=== PATIENT | male | born 1955 | race Caucasian/White ===

== ENCOUNTER 2020-10-13 14:48 | Emergency (ER) | payer OTHER, SELFPAY ==
[2020-10-13 14:59] VITALS: BP 142/87; PULSE 70; RESP 18; TEMP 36.6; O2SAT 93; BMI 25.8
[2020-10-13 16:52] VITALS: BP 166/94; PULSE 70; RESP 12; O2SAT 94
--- NOTE | 2020-10-13 17:11 | W.ED.MALEGU ---
HPI - Male Genitourinary General: Chief complaint: Urogenital-Male Stated complaint: LOWER ABD PAIN Time Seen by Provider: 10/13/20 17:03 History of Present Illness: HPI Narrative: 64-year-old male presents with irritation to the tip of his penis. Patient is uncircumcised male. Has diabetes that he like [id number] and feels he has a yeast infection. Patient has tried some unknown jiaj-rvm-[id number] medications with no improvement. He has no dysuria. He has no fever chills nausea vomiting or systemic complaints. Patient states he was supposed to have appointment with the urologist today but for some reason that urologist was not in our [place] he is not sure why he was not able to have his appointment. Review of Systems Const: Denies: fever(s) Card: Denies: chest pain or palpitations Resp: Denies: dyspnea or productive cough GI: Denies: abdominal pain or nausea : Reports: other (Please see HPI) Musc: Denies: other Physical Exam Const: COMMON NORMALS: no acute distress and patient oriented x3 Resp: COMMON NORMALS: normal respiratory effort Cardio: COMMON NORMALS: regular rate and regular rhythm RATE: regular rate RHYTHM: regular rhythm GI: COMMON NORMALS: Soft to palpation and non-tender PALPATION: Yes Soft to palpation : PENIS: uncircumcised and other (Blantits likely due to yeast infection) Neuro: COMMON NORMALS: patient oriented x3 Psych: COMMON NORMALS: mental status grossly normal Course Vital Signs: Vital signs: Vital Signs Temperature 97.9 F 10/13/20 14:59 Pulse Rate 70 10/13/20 16:52 Respiratory Rate 12 10/13/20 16:52 Blood Pressure 166/94 10/13/20 16:52 Pulse Oximetry 94 10/13/20 16:52 Discharge Plan Discharge Patient Disposition: Home Clinical Impression: Balanitis Condition: Stable Discharge Orders: Discharge ED (Routine); Ordered 10/13/20 Ordered By: Carroll Zapata Discharge Diet: Usual diet Discharge Activity: Resume usual activity Patient Instructions: Josetis (ED), Opioid Safety, Yeast Infection Activity Restrictions/Additional Instructions: Follow-up with your primary care provider or urologist for recheck of today symptoms You may use niun-cbi-gpybvrc woman's vaginal medication for yeast infection. 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
[2020-10-13 17:39] VITALS: BP 140/87; PULSE 66; RESP 16; O2SAT 94
== END 2020-10-13 17:40 | disposition home or self-care (01) ==
PROVIDERS: Emergency Provider Student in an Organized Health Care Education/Training Program
DX: N48.1 Balanitis (principal)
CPT/HCPCS: 99281

== ENCOUNTER 2021-03-08 14:57 | Emergency (ER) | payer OTHER, MEDICARE, SELFPAY ==
[2021-03-08 15:26] VITALS: BP 126/77; PULSE 88; RESP 18; TEMP 36.5; O2SAT 94; BMI 21.9
--- NOTE | 2021-03-08 16:06 | XRR_ITS ---
PROCEDURE INFORMATION: Exam: XR Chest Exam date and time: 03/08/2021 4:06 PM Age: 65 years old Clinical indication: Cough and fever and other: Weakness; Additional info: Dyspnea/cough TECHNIQUE: Imaging protocol: XR of the chest. Views: 1 view. COMPARISON: No relevant prior studies available. FINDINGS: Lungs: There are calcified granulomas in the right upper lobe. Visualized portions of the lungs are clear. Pleural spaces: Unremarkable. No pleural effusion. No pneumothorax. Heart/Mediastinum: Heart is within normal limits of size. Bones/joints: Unremarkable. XR/XR chest 1V portable [id number] IMPRESSION: No acute infiltrates.
--- NOTE | 2021-03-08 16:07 | ECG_ITS ---
[facility] Test Date: 2021-03-08 Pat Name: Marlon Whitehead Department: Room: Gender: Male [employer]: : [id number] Requested By: Dylan Bagley Order Number: [id number] Zoya MD: Alexandria Hanson M.D. Measurements Intervals [place] Rate: 79 P: 62 DC: 147 QRS: 69 QRSD: 90 T: 50 QT: 350 QTc: 402 Interpretive Statements SINUS RHYTHM WITH OCCASIONAL VENTRICULAR PREMATURE COMPLEXES No previous ECG available for comparison Electronically Signed On 03-08-2021 23:21:51 CDT by Alexandria Hanson M.D. [id number]
--- NOTE | 2021-03-08 16:15 | W.ED.FEVER ---
Documented by User: Dylan Langston DO 03/09/21 07:47 HPI - Fever General: Chief Complaint: Fever Stated Complaint: Fever, Chills, & Body Aches Time Seen by Provider: 03/08/21 15:22 History of Present Illness: HPI Narrative: 65-year-old male presents emergency room complaining of generalized weakness malaise not feeling well.'s been going on for the last several days. States he initially had a bit of a fever at home up to 103 but that seems to have resolved he does not have one here. He was concerned that he had been working at a new job and exposed to some animal waste that may have caused this. He is diabetic he is not been managing his diabetes really at all at this point. He has prescriptions for Metformin. He was also of the impression that the gemfibrozil manage his diabetes. He denies any abdominal pain no polyuria polydipsia or polyphagia. MD elicited complaint: fever and malaise Pertinent past history: diabetes Onset (ago): day(s) Measured temperature: 103 F Exacerbating factors: nothing Relieving factors: nothing Associated symptoms: Reports flank pain, cough, myalgias and short of breath; Deny abdominal pain, chills, chest pain, confusion, diarrhea, dysuria, extremity pain, headache(s), nasal congestion, nausea, night sweats, rash, rhinorrhea, sinus pain, stiffness, sore throat, vomiting or weight loss Treatments prior to arrival fever: none Review of Systems Const: Denies: chills or night sweats ENMT: Denies: nasal congestion or sinus pain Card: Denies: chest pain Resp: Denies: dyspnea, productive cough or non-productive cough GI: Denies: abdominal pain, nausea, vomiting or diarrhea : Reports: flank pain; Denies: dysuria Musc: Denies: extremity pain Skin/Breast: Denies: rash or pruritus Neuro: Denies: headache(s) or confusion Physical Exam Const: COMMON NORMALS: no acute distress GENERAL APPEARANCE: cooperative and comfortable ORIENTATION/CONSCIOUSNESS: Yes awake, Yes oriented to person, Yes oriented to place and Yes oriented to time HENMT: COMMON NORMALS: normocephalic, atraumatic and hearing grossly normal bilaterally HEAD & SCALP: normocephalic and atraumatic Neck/C-Spine: COMMON NORMALS: no JVD Resp: COMMON NORMALS: normal respiratory effort, No retractions, No use of accessory muscles and clear to auscultation bilaterally AUSCULTATION: clear to auscultation bilaterally Cardio: COMMON NORMALS: no JVD, regular rate, regular rhythm and No murmurs present (Cardio) RATE: regular rate RHYTHM: regular rhythm GI: COMMON NORMALS: Soft to palpation and No hepatosplenomegaly present AUSCULTATION: Yes normoactive bowel sounds PALPATION: Yes Soft to palpation, No Tenderness to palpation present (GI), No Guarding due to palpation present (GI) and Yes No hepatosplenomegaly present Extremity: COMMON NORMALS: normal to inspection, capillary refill normal, no clubbing, cyanosis or edema, no calf tenderness and no pedal edema Neuro: SENSORIUM/ORIENTATION: Yes oriented to person, Yes oriented to place and Yes oriented to time Skin: COMMON NORMALS: no rashes or lesions noted GENERAL SKIN EXAM: no rashes or lesions noted Course Vital Signs: Vital signs: Vital Signs Temperature 97.7 F 03/08/21 15:26 Pulse Rate 84 03/08/21 20:03 Respiratory Rate 16 03/08/21 20:03 Blood Pressure 128/80 03/08/21 20:03 Pulse Oximetry 96 03/08/21 20:03 MDM - Fever MDM Narrative: Medical decision making narrative: Blood sugar significantly elevated. Patient given IV fluids and insulin. He is hyponatremic but this corrects to near normal when accounting for his blood sugars. We will give him IV fluids, insulin and recheck an Accu-Chek. Care turned over to Dr. Sumner at change of shift see his notes for final diagnosis and disposition. Lab Data: Labs: Lab Results 03/08/21 03/08/21 03/08/21 Range/Units 16:22 16:22 16:30 WBC (4.0-10.0) 10^3/ uL RBC (4.1-5.3) 10^6/u L Hgb (11.7-16.6) g/dL Hct (42.0-52.0) % MCV (80-94) fl MCH (28.0-34.0) pg MCHC (30.0-36.0) g/dL RDW (12.1-15.1) % Plt Count (130-400) 10^3/c mm MPV (7.4-10.4) fL Lymph % (Auto) Towner % (Auto) Lymph # (Auto) Towner # (Auto) Total Counted (0-100) Atypical Lymphs % (0-5) % Absolute Neutrophi ls (1.4-6.5) 10^3/c mm Segmented Neutroph ils % Abs Segm Neuts (Ma n) (1.6-7.1) 10/cmm Band Neutrophils % Abs Band Neuts (Ma n) (0.0-1.2) 10^3/c mm Absolute Lymphocyt es (1.2-3.4) 10^3/c mm Lymphocytes (Manua l) % Monocytes (Manual) % Absolute Monocytes (0.1-0.6) 10^3/c mm Eosinophils (Manua l) Basophils (Manual) Platelet Estimate (Normal) Specimen Type Arterial Sample Site Brachial, right ABG pH 7.45 (7.35-7.45) ABG pCO2 33.4 L (35-45) mmHg ABG pO2 69.1 L (80.0-100.0) mmH g ABG HCO3 23.4 (22-26) mmol/L ABG O2 Saturation 94.2 ABG Base Excess 0.1 (-2.0-2.0) mmol/ L Andrea Test Pos A-a O2 Gradient 4.9 L (5-10) mmHg Hematocrit 42.9 (42-52) % Hgb O2 Saturation 93.2 L (95-100) % Carboxyhemoglobin 0.2 L (0.4-20.1) %THgb Methemoglobin 0.9 (0.4-1.5) % Total Hemoglobin 14.0 (14-18) g/dL Sodium 128.0 L (131-143) mmol/L Potassium 4.5 (3.5-5.0) mmol/L Glucose 586.0 H (70-115) mg/dL Ionized Calcium 1.2 (1.1-1.4) mmol/L O2 Delivery Device Room air Hearing Stenographer ID jmn Chloride (98-107) mmol/L Carbon Dioxide (22-29) mmol/L Anion Gap (5-19) BUN (8-23) mg/dL Creatinine (0.7-1.2) mg/dL GFR Calculation (90-130) mL/min POC Glucose (70-110) mg/dL Calculated Osmolal ity (285-295) mOsm/k g Lactic Acid (0.5-2.2) mmol/L Calcium (8.5-10.5) mg/dL Total Bilirubin (0.15-1.2) mg/dL AST (0-40) U/L ALT (0-41) U/L Alkaline Phosphata se (40-130) IU/L Creatine Kinase (39-308) U/L Total Protein (6.6-8.7) g/dL Albumin (3.5-5.2) g/dL Globulin (1.3-4.6) g/dL Urine Color (Yellow) Urine Appearance (CLEAR) Urine pH (5-7) Ur Specific Gravit y (1.005-1.030) Urine Protein (Negative) Urine Glucose (UA) (Normal) Urine Ketones (Negative) Urine Blood (Negative) Urine Nitrate (Negative) Urine Bilirubin (Negative) Urine Urobilinogen (Negative) mg/dL Ur Leukocyte Renata ase (Negative) Urine RBC (0-2) /hpf Urine WBC (0-5) /hpf Ur Squamous Epith Cells (0-5) /hpf Amorphous Sediment Urine Bacteria (NONE) /hpf Nasal/Oral COVID-1 9 PCR Not detected SARS-CoV-2 Ag (Rap id) Negative (Negative) 03/08/21 03/08/21 03/08/21 Range/Units 16:33 16:33 16:33 WBC 8.4 (4.0-10.0) 10^3/ uL RBC 4.38 (4.1-5.3) 10^6/u L Hgb 13.7 (11.7-16.6) g/dL Hct 40.8 L (42.0-52.0) % MCV 93.2 (80-94) fl MCH 31.3 (28.0-34.0) pg MCHC 33.6 (30.0-36.0) g/dL RDW 13.3 (12.1-15.1) % Plt Count 85 L (130-400) 10^3/c mm MPV 11.7 H (7.4-10.4) fL Lymph % (Auto) Not Reportable Towner % (Auto) Not Reportable Lymph # (Auto) Not Reportable Towner # (Auto) Not Reportable Total Counted 100 (0-100) Atypical Lymphs % 7.0 H (0-5) % Absolute Neutrophi ls 5.3 (1.4-6.5) 10^3/c mm Segmented Neutroph ils 41 % Abs Segm Neuts (Ma n) 3.4 (1.6-7.1) 10/cmm Band Neutrophils 22.0 % Abs Band Neuts (Ma n) 1.8 H (0.0-1.2) 10^3/c mm Absolute Lymphocyt es 2.6 (1.2-3.4) 10^3/c mm Lymphocytes (Manua l) 24 % Monocytes (Manual) 7.0 % Absolute Monocytes 0.6 (0.1-0.6) 10^3/c mm Eosinophils (Manua l) Not Reportable Basophils (Manual) Not Reportable Platelet Estimate Decreased (Normal) Specimen Type Sample Site ABG pH (7.35-7.45) ABG pCO2 (35-45) mmHg ABG pO2 (80.0-100.0) mmH g ABG HCO3 (22-26) mmol/L ABG O2 Saturation ABG Base Excess (-2.0-2.0) mmol/ L Andrea Test A-a O2 Gradient (5-10) mmHg Hematocrit (42-52) % Hgb O2 Saturation (95-100) % Carboxyhemoglobin (0.4-20.1) %THgb Methemoglobin (0.4-1.5) % Total Hemoglobin (14-18) g/dL Sodium 124 L (131-143) mmol/L Potassium 5.6 H (3.5-5.0) mmol/L Glucose 542 H* (70-115) mg/dL Ionized Calcium (1.1-1.4) mmol/L O2 Delivery Device Hearing Stenographer ID Chloride 88 L (98-107) mmol/L Carbon Dioxide 25 (22-29) mmol/L Anion Gap 16.6 (5-19) BUN 25 H (8-23) mg/dL Creatinine 0.7 (0.7-1.2) mg/dL GFR Calculation 112.5 (90-130) mL/min POC Glucose (70-110) mg/dL Calculated Osmolal ity 287 (285-295) mOsm/k g Lactic Acid 2.1 (0.5-2.2) mmol/L Calcium 8.9 (8.5-10.5) mg/dL Total Bilirubin 0.7 (0.15-1.2) mg/dL AST 28 (0-40) U/L ALT 28 (0-41) U/L Alkaline Phosphata se 125 (40-130) IU/L Creatine Kinase 13 L (39-308) U/L Total Protein 6.4 L (6.6-8.7) g/dL Albumin 3.4 L (3.5-5.2) g/dL Globulin 3.0 (1.3-4.6) g/dL Urine Color (Yellow) Urine Appearance (CLEAR) Urine pH (5-7) Ur Specific Gravit y (1.005-1.030) Urine Protein (Negative) Urine Glucose (UA) (Normal) Urine Ketones (Negative) Urine Blood (Negative) Urine Nitrate (Negative) Urine Bilirubin (Negative) Urine Urobilinogen (Negative) mg/dL Ur Leukocyte Renata ase (Negative) Urine RBC (0-2) /hpf Urine WBC (0-5) /hpf Ur Squamous Epith Cells (0-5) /hpf Amorphous Sediment Urine Bacteria (NONE) /hpf Nasal/Oral COVID-1 9 PCR SARS-CoV-2 Ag (Rap id) (Negative) 03/08/21 03/08/21 03/08/21 Range/Units 16:55 18:05 19:29 WBC (4.0-10.0) 10^3/ uL RBC (4.1-5.3) 10^6/u L Hgb (11.7-16.6) g/dL Hct (42.0-52.0) % MCV (80-94) fl MCH (28.0-34.0) pg MCHC (30.0-36.0) g/dL RDW (12.1-15.1) % Plt Count (130-400) 10^3/c mm MPV (7.4-10.4) fL Lymph % (Auto) Towner % (Auto) Lymph # (Auto) Towner # (Auto) Total Counted (0-100) Atypical Lymphs % (0-5) % Absolute Neutrophi ls (1.4-6.5) 10^3/c mm Segmented Neutroph ils % Abs Segm Neuts (Ma n) (1.6-7.1) 10/cmm Band Neutrophils % Abs Band Neuts (Ma n) (0.0-1.2) 10^3/c mm Absolute Lymphocyt es (1.2-3.4) 10^3/c mm Lymphocytes (Manua l) % Monocytes (Manual) % Absolute Monocytes (0.1-0.6) 10^3/c mm Eosinophils (Manua l) Basophils (Manual) Platelet Estimate (Normal) Specimen Type Sample Site ABG pH (7.35-7.45) ABG pCO2 (35-45) mmHg ABG pO2 (80.0-100.0) mmH g ABG HCO3 (22-26) mmol/L ABG O2 Saturation ABG Base Excess (-2.0-2.0) mmol/ L Andrea Test A-a O2 Gradient (5-10) mmHg Hematocrit (42-52) % Hgb O2 Saturation (95-100) % Carboxyhemoglobin (0.4-20.1) %THgb Methemoglobin (0.4-1.5) % Total Hemoglobin (14-18) g/dL Sodium (131-143) mmol/L Potassium (3.5-5.0) mmol/L Glucose (70-115) mg/dL Ionized Calcium (1.1-1.4) mmol/L O2 Delivery Device Hearing Stenographer ID Chloride (98-107) mmol/L Carbon Dioxide (22-29) mmol/L Anion Gap (5-19) BUN (8-23) mg/dL Creatinine (0.7-1.2) mg/dL GFR Calculation (90-130) mL/min POC Glucose 485 H 328 H (70-110) mg/dL Calculated Osmolal ity (285-295) mOsm/k g Lactic Acid (0.5-2.2) mmol/L Calcium (8.5-10.5) mg/dL Total Bilirubin (0.15-1.2) mg/dL AST (0-40) U/L ALT (0-41) U/L Alkaline Phosphata se (40-130) IU/L Creatine Kinase (39-308) U/L Total Protein (6.6-8.7) g/dL Albumin (3.5-5.2) g/dL Globulin (1.3-4.6) g/dL Urine Color Straw (Yellow) Urine Appearance Clear (CLEAR) Urine pH 5 (5-7) Ur Specific Gravit y 1.005 (1.005-1.030) Urine Protein Neg (Negative) Urine Glucose (UA) 4+ H (Normal) Urine Ketones 1+ H (Negative) Urine Blood 2+ H (Negative) Urine Nitrate Negative (Negative) Urine Bilirubin Neg (Negative) Urine Urobilinogen Norm (Negative) mg/dL Ur Leukocyte Renata ase Negative (Negative) Urine RBC 0-4 H (0-2) /hpf Urine WBC 5-10 H (0-5) /hpf Ur Squamous Epith Cells 5-10 H (0-5) /hpf Amorphous Sediment Not Reportable Urine Bacteria 4+ H (NONE) /hpf Nasal/Oral COVID-1 9 PCR SARS-CoV-2 Ag (Rap id) (Negative) Discharge Plan Discharge Patient Disposition: Home Clinical Impression: Fever, Malaise, Hyperglycemia, Type 2 diabetes mellitus Condition: Stable Prescriptions: New Lantus U-100 Insulin 100 unit/mL solution 6 unit SUBCUT .qhs Qty: 10 RF: 3 No Action garlic 100 mg Tablet 100 mg PO DAILY RF: 0 Cayenne Plus Garlic 200-300 mg Capsule 1 cap PO DAILY RF: 0 Vitamin C 250 mg Tablet 250 mg PO DAILY RF: 0 gemfibrozil 600 mg Tablet 600 mg PO DAILY RF: 0 ginkgo biloba 60 mg Tablet 60 mg PO BID RF: 0 ginseng 250 mg Tablet 250 mg PO DAILY RF: 0 Panax Ginseng 150 mg Capsule 150 mg PO DAILY RF: 0 metformin 1 tab PO DAILY RF: 0 Discharge Orders: Discharge ED (Routine); Ordered 03/08/21 Ordered By: Clive Moss Referrals: Evelio Pisano DO [Primary Care Provider] - Discharge Diet: Diabetic Discharge Activity: Increase activity as tolerated Patient Instructions: Insulin Glargine (Injection), Fever in Adults (ED), How to Check Your Blood Sugar (ED), Fatigue (ED), Diabetic Hyperglycemia (ED) Activity Restrictions/Additional Instructions: Thank you for visiting the emergency department. You were seen and evaluated for fever and malaise. The exact cause of the symptoms is somewhat unclear. You were noted to have high blood sugar. This improved with insulin and IV fluids. You will be given a prescription for a nightly insulin dose, this requires close monitoring and follow-up with your primary care provider. Please record blood glucose throughout the day as well as prior to injection and within a few hours after injection of this medication. Please return to the emergency department for worsening of your symptoms, low blood sugar, increased thirst hunger and/or urine output, or anything else that you are concerned about and feel needs emergency department evaluation. Sign Out Sign Out Data: Patient Sign Out occurred on 03/08/21 at 18:08. Patient's care was discussed, and care was transferred from to Clive Moss MD. Coding Level of Care Code ED Management Development Specialist for Chg Fwd Exam Comprehensive Documented by User: Clive Moss MD 03/10/21 07:40 HPI - Fever General: Chief Complaint: Fever Stated Complaint: Fever, Chills, & Body Aches Time Seen by Provider: 03/08/21 15:22 Course Vital Signs: Vital signs: Vital Signs Temperature 97.7 F 03/08/21 15:26 Pulse Rate 84 03/08/21 20:03 Respiratory Rate 16 03/08/21 20:03 Blood Pressure 128/80 03/08/21 20:03 Pulse Oximetry 96 03/08/21 20:03 MDM - Fever MDM Narrative: Medical decision making narrative: Patient care handoff received pending completion of lab work and reevaluation of blood glucose after IV fluid hydration and insulin, blood glucose improved, reassess patient who felt improved and felt comfortable with plan to start home insulin (Lantus) at night and follow-up with a primary care provider. Return precautions discussed, all questions answered. Patient in satisfactory condition. Clive Moss MD Emergency Medicine Lab Data: Labs: Lab Results 03/08/21 03/08/21 03/08/21 Range/Units 16:22 16:22 16:30 WBC (4.0-10.0) 10^3/ uL RBC (4.1-5.3) 10^6/u L Hgb (11.7-16.6) g/dL Hct (42.0-52.0) % MCV (80-94) fl MCH (28.0-34.0) pg MCHC (30.0-36.0) g/dL RDW (12.1-15.1) % Plt Count (130-400) 10^3/c mm MPV (7.4-10.4) fL Lymph % (Auto) Towner % (Auto) Lymph # (Auto) Towner # (Auto) Total Counted (0-100) Atypical Lymphs % (0-5) % Absolute Neutrophi ls (1.4-6.5) 10^3/c mm Segmented Neutroph ils % Abs Segm Neuts (Ma n) (1.6-7.1) 10/cmm Band Neutrophils % Abs Band Neuts (Ma n) (0.0-1.2) 10^3/c mm Absolute Lymphocyt es (1.2-3.4) 10^3/c mm Lymphocytes (Manua l) % Monocytes (Manual) % Absolute Monocytes (0.1-0.6) 10^3/c mm Eosinophils (Manua l) Basophils (Manual) Platelet Estimate (Normal) Specimen Type Arterial Sample Site Brachial, right ABG pH 7.45 (7.35-7.45) ABG pCO2 33.4 L (35-45) mmHg ABG pO2 69.1 L (80.0-100.0) mmH g ABG HCO3 23.4 (22-26) mmol/L ABG O2 Saturation 94.2 ABG Base Excess 0.1 (-2.0-2.0) mmol/ L Andrea Test Pos A-a O2 Gradient 4.9 L (5-10) mmHg Hematocrit 42.9 (42-52) % Hgb O2 Saturation 93.2 L (95-100) % Carboxyhemoglobin 0.2 L (0.4-20.1) %THgb Methemoglobin 0.9 (0.4-1.5) % Total Hemoglobin 14.0 (14-18) g/dL Sodium 128.0 L (131-143) mmol/L Potassium 4.5 (3.5-5.0) mmol/L Glucose 586.0 H (70-115) mg/dL Ionized Calcium 1.2 (1.1-1.4) mmol/L O2 Delivery Device Room air Hearing Stenographer ID jmn Chloride (98-107) mmol/L Carbon Dioxide (22-29) mmol/L Anion Gap (5-19) BUN (8-23) mg/dL Creatinine (0.7-1.2) mg/dL GFR Calculation (90-130) mL/min POC Glucose (70-110) mg/dL Calculated Osmolal ity (285-295) mOsm/k g Lactic Acid (0.5-2.2) mmol/L Calcium (8.5-10.5) mg/dL Total Bilirubin (0.15-1.2) mg/dL AST (0-40) U/L ALT (0-41) U/L Alkaline Phosphata se (40-130) IU/L Creatine Kinase (39-308) U/L Total Protein (6.6-8.7) g/dL Albumin (3.5-5.2) g/dL Globulin (1.3-4.6) g/dL Urine Color (Yellow) Urine Appearance (CLEAR) Urine pH (5-7) Ur Specific Gravit y (1.005-1.030) Urine Protein (Negative) Urine Glucose (UA) (Normal) Urine Ketones (Negative) Urine Blood (Negative) Urine Nitrate (Negative) Urine Bilirubin (Negative) Urine Urobilinogen (Negative) mg/dL Ur Leukocyte Renata ase (Negative) Urine RBC (0-2) /hpf Urine WBC (0-5) /hpf Ur Squamous Epith Cells (0-5) /hpf Amorphous Sediment Urine Bacteria (NONE) /hpf Nasal/Oral COVID-1 9 PCR Not detected SARS-CoV-2 Ag (Rap id) Negative (Negative) 03/08/21 03/08/21 03/08/21 Range/Units 16:33 16:33 16:33 WBC 8.4 (4.0-10.0) 10^3/ uL RBC 4.38 (4.1-5.3) 10^6/u L Hgb 13.7 (11.7-16.6) g/dL Hct 40.8 L (42.0-52.0) % MCV 93.2 (80-94) fl MCH 31.3 (28.0-34.0) pg MCHC 33.6 (30.0-36.0) g/dL RDW 13.3 (12.1-15.1) % Plt Count 85 L (130-400) 10^3/c mm MPV 11.7 H (7.4-10.4) fL Lymph % (Auto) Not Reportable Towner % (Auto) Not Reportable Lymph # (Auto) Not Reportable Towner # (Auto) Not Reportable Total Counted 100 (0-100) Atypical Lymphs % 7.0 H (0-5) % Absolute Neutrophi ls 5.3 (1.4-6.5) 10^3/c mm Segmented Neutroph ils 41 % Abs Segm Neuts (Ma n) 3.4 (1.6-7.1) 10/cmm Band Neutrophils 22.0 % Abs Band Neuts (Ma n) 1.8 H (0.0-1.2) 10^3/c mm Absolute Lymphocyt es 2.6 (1.2-3.4) 10^3/c mm Lymphocytes (Manua l) 24 % Monocytes (Manual) 7.0 % Absolute Monocytes 0.6 (0.1-0.6) 10^3/c mm Eosinophils (Manua l) Not Reportable Basophils (Manual) Not Reportable Platelet Estimate Decreased (Normal) Specimen Type Sample Site ABG pH (7.35-7.45) ABG pCO2 (35-45) mmHg ABG pO2 (80.0-100.0) mmH g ABG HCO3 (22-26) mmol/L ABG O2 Saturation ABG Base Excess (-2.0-2.0) mmol/ L Andrea Test A-a O2 Gradient (5-10) mmHg Hematocrit (42-52) % Hgb O2 Saturation (95-100) % Carboxyhemoglobin (0.4-20.1) %THgb Methemoglobin (0.4-1.5) % Total Hemoglobin (14-18) g/dL Sodium 124 L (131-143) mmol/L Potassium 5.6 H (3.5-5.0) mmol/L Glucose 542 H* (70-115) mg/dL Ionized Calcium (1.1-1.4) mmol/L O2 Delivery Device Hearing Stenographer ID Chloride 88 L (98-107) mmol/L Carbon Dioxide 25 (22-29) mmol/L Anion Gap 16.6 (5-19) BUN 25 H (8-23) mg/dL Creatinine 0.7 (0.7-1.2) mg/dL GFR Calculation 112.5 (90-130) mL/min POC Glucose (70-110) mg/dL Calculated Osmolal ity 287 (285-295) mOsm/k g Lactic Acid 2.1 (0.5-2.2) mmol/L Calcium 8.9 (8.5-10.5) mg/dL Total Bilirubin 0.7 (0.15-1.2) mg/dL AST 28 (0-40) U/L ALT 28 (0-41) U/L Alkaline Phosphata se 125 (40-130) IU/L Creatine Kinase 13 L (39-308) U/L Total Protein 6.4 L (6.6-8.7) g/dL Albumin 3.4 L (3.5-5.2) g/dL Globulin 3.0 (1.3-4.6) g/dL Urine Color (Yellow) Urine Appearance (CLEAR) Urine pH (5-7) Ur Specific Gravit y (1.005-1.030) Urine Protein (Negative) Urine Glucose (UA) (Normal) Urine Ketones (Negative) Urine Blood (Negative) Urine Nitrate (Negative) Urine Bilirubin (Negative) Urine Urobilinogen (Negative) mg/dL Ur Leukocyte Renata ase (Negative) Urine RBC (0-2) /hpf Urine WBC (0-5) /hpf Ur Squamous Epith Cells (0-5) /hpf Amorphous Sediment Urine Bacteria (NONE) /hpf Nasal/Oral COVID-1 9 PCR SARS-CoV-2 Ag (Rap id) (Negative) 03/08/21 03/08/21 03/08/21 Range/Units 16:55 18:05 19:29 WBC (4.0-10.0) 10^3/ uL RBC (4.1-5.3) 10^6/u L Hgb (11.7-16.6) g/dL Hct (42.0-52.0) % MCV (80-94) fl MCH (28.0-34.0) pg MCHC (30.0-36.0) g/dL RDW (12.1-15.1) % Plt Count (130-400) 10^3/c mm MPV (7.4-10.4) fL Lymph % (Auto) Towner % (Auto) Lymph # (Auto) Towner # (Auto) Total Counted (0-100) Atypical Lymphs % (0-5) % Absolute Neutrophi ls (1.4-6.5) 10^3/c mm Segmented Neutroph ils % Abs Segm Neuts (Ma n) (1.6-7.1) 10/cmm Band Neutrophils % Abs Band Neuts (Ma n) (0.0-1.2) 10^3/c mm Absolute Lymphocyt es (1.2-3.4) 10^3/c mm Lymphocytes (Manua l) % Monocytes (Manual) % Absolute Monocytes (0.1-0.6) 10^3/c mm Eosinophils (Manua l) Basophils (Manual) Platelet Estimate (Normal) Specimen Type Sample Site ABG pH (7.35-7.45) ABG pCO2 (35-45) mmHg ABG pO2 (80.0-100.0) mmH g ABG HCO3 (22-26) mmol/L ABG O2 Saturation ABG Base Excess (-2.0-2.0) mmol/ L Andrea Test A-a O2 Gradient (5-10) mmHg Hematocrit (42-52) % Hgb O2 Saturation (95-100) % Carboxyhemoglobin (0.4-20.1) %THgb Methemoglobin (0.4-1.5) % Total Hemoglobin (14-18) g/dL Sodium (131-143) mmol/L Potassium (3.5-5.0) mmol/L Glucose (70-115) mg/dL Ionized Calcium (1.1-1.4) mmol/L O2 Delivery Device Hearing Stenographer ID Chloride (98-107) mmol/L Carbon Dioxide (22-29) mmol/L Anion Gap (5-19) BUN (8-23) mg/dL Creatinine (0.7-1.2) mg/dL GFR Calculation (90-130) mL/min POC Glucose 485 H 328 H (70-110) mg/dL Calculated Osmolal ity (285-295) mOsm/k g Lactic Acid (0.5-2.2) mmol/L Calcium (8.5-10.5) mg/dL Total Bilirubin (0.15-1.2) mg/dL AST (0-40) U/L ALT (0-41) U/L Alkaline Phosphata se (40-130) IU/L Creatine Kinase (39-308) U/L Total Protein (6.6-8.7) g/dL Albumin (3.5-5.2) g/dL Globulin (1.3-4.6) g/dL Urine Color Straw (Yellow) Urine Appearance Clear (CLEAR) Urine pH 5 (5-7) Ur Specific Gravit y 1.005 (1.005-1.030) Urine Protein Neg (Negative) Urine Glucose (UA) 4+ H (Normal) Urine Ketones 1+ H (Negative) Urine Blood 2+ H (Negative) Urine Nitrate Negative (Negative) Urine Bilirubin Neg (Negative) Urine Urobilinogen Norm (Negative) mg/dL Ur Leukocyte Ernata ase Negative (Negative) Urine RBC 0-4 H (0-2) /hpf Urine WBC 5-10 H (0-5) /hpf Ur Squamous Epith Cells 5-10 H (0-5) /hpf Amorphous Sediment Not Reportable Urine Bacteria 4+ H (NONE) /hpf Nasal/Oral COVID-1 9 PCR SARS-CoV-2 Ag (Rap id) (Negative) Discharge Plan Discharge Patient Disposition: Home Clinical Impression: Fever, Malaise, Hyperglycemia, Type 2 diabetes mellitus Condition: Stable Prescriptions: New Lantus U-100 Insulin 100 unit/mL solution 6 unit SUBCUT .qhs Qty: 10 RF: 3 No Action garlic 100 mg Tablet 100 mg PO DAILY RF: 0 Cayenne Plus Garlic 200-300 mg Capsule 1 cap PO DAILY RF: 0 Vitamin C 250 mg Tablet 250 mg PO DAILY RF: 0 gemfibrozil 600 mg Tablet 600 mg PO DAILY RF: 0 ginkgo biloba 60 mg Tablet 60 mg PO BID RF: 0 ginseng 250 mg Tablet 250 mg PO DAILY RF: 0 Panax Ginseng 150 mg Capsule 150 mg PO DAILY RF: 0 metformin 1 tab PO DAILY RF: 0 Discharge Orders: Discharge ED (Routine); Ordered 03/08/21 Ordered By: Clive Moss Referrals: Evelio Pisano DO [Primary Care Provider] - Discharge Diet: Diabetic Discharge Activity: Increase activity as tolerated Patient Instructions: Insulin Glargine (Injection), Fever in Adults (ED), How to Check Your Blood Sugar (ED), Fatigue (ED), Diabetic Hyperglycemia (ED) Activity Restrictions/Additional Instructions: Thank you for visiting the emergency department. You were seen and evaluated for fever and malaise. The exact cause of the symptoms is somewhat unclear. You were noted to have high blood sugar. This improved with insulin and IV fluids. You will be given a prescription for a nightly insulin dose, this requires close monitoring and follow-up with your primary care provider. Please record blood glucose throughout the day as well as prior to injection and within a few hours after injection of this medication. Please return to the emergency department for worsening of your symptoms, low blood sugar, increased thirst hunger and/or urine output, or anything else that you are concerned about and feel needs emergency department evaluation. Sign Out Sign Out Data: Patient Sign Out occurred on 03/08/21 at 18:08. Patient's care was discussed, and care was transferred from to Clive Moss MD. Coding Level of Care Code ED Management Development Specialist for [employer] [facility] Exam Comprehensive
[2021-03-08 16:31] VITALS: BP 131/78; PULSE 83; RESP 17; O2SAT 97
--- NOTE | 2021-03-08 16:36 | PC.NURSE ---
PATIENT CONNECTED TO NET TECHNICAL ARCHITECT.
[2021-03-08 16:42] LABS: ABG PCO2 33.4 mmHg (35-45); ABG PH Result 7.45 (7.35-7.45); Alveolar-Arterial Oxygen Gradi 4.9 mmHg (5-10); Arterial Blood Gas Hematocrit 42.9 % (42-52); Base Excess ABG 0.1 mmol/L (-2.0-2.0); Blood Gas Allen Test Pos; Blood Gas Sample Site Brachial, right; Blood Gas Sample Type Arterial; Carboxyhemoglobin 0.2 %THgb (0.4-20.1); HCO3 ABG 23.4 mmol/L (22-26); HGB O2 Sat 93.2 % (95-100); Ionized Calcium Level - ABG 1.2 mmol/L (1.1-1.4); Methemoglobin 0.9 % (0.4-1.5); Oxygen Device ROOM AIR; Oxygen Saturation ABG 94.2; PO2 ABG 69.1 mmHg (80.0-100.0); Potassium Level - ABG 4.5 mmol/L (3.5-5.0)
[2021-03-08 16:44] LABS: Hematocrit 40.8 % (42.0-52.0); Hemoglobin 13.7 g/dL (11.7-16.6); Mean Corpuscular HGB Conc 33.6 g/dL (30.0-36.0); Mean Corpuscular Hemoglobin 31.3 pg (28.0-34.0); Mean Corpuscular Volume 93.2 fl (80-94); Mean Platelet Volume 11.7 fL (7.4-10.4); Platelet Count 85 10^3/cmm (130-400); Red Blood Count 4.38 10^6/uL (4.1-5.3); Red Cell Distribution Width 13.3 % (12.1-15.1); White Blood Count 8.4 10^3/uL (4.0-10.0)
[2021-03-08 16:54] LABS: SARS Covid-2 Antigen Negative (Negative)
[2021-03-08 17:07] LABS: Alanine Aminotransferase 28 U/L (0-41); Albumin Level 3.4 g/dL (3.5-5.2); Alkaline Phosphatase 125 IU/L (40-130); Anion Gap 16.6 (5-19); Aspartate Amino Transferase 28 U/L (0-40); Blood Urea Nitrogen 25 mg/dL (8-23); Calcium 8.9 mg/dL (8.5-10.5); Carbon Dioxide 25 mmol/L (22-29); Chloride 88 mmol/L (98-107); Creatine Phosphokinase 13 U/L (39-308); Glomerular Filtration Rate 112.5 mL/min (90-130); Osmolality Calculated 287 mOsm/kg (285-295); Potassium 5.6 mmol/L (3.5-5.1); Sodium 124 mmol/L (136-145); Total Bilirubin 0.7 mg/dL (0.15-1.2); Total Protein 6.4 g/dL (6.6-8.7)
[2021-03-08 17:08] LABS: Glucose 542 mg/dL (65-115)
[2021-03-08 17:22] LABS: Add Urine Microscopic? YES; Bilirubin Urine Neg (Negative); Blood Urine 2+ (Negative); Glucose Urine UA 4+ (Normal); Ketones Urine 1+ (Negative); Leukocyte Esterase Urine Negative (Negative); Nitrate Urine Negative (Negative); Protein Urine Neg (Negative); Specific Gravity, Urine 1.005 (1.005-1.030); Urine Appearance Clear (CLEAR); Urine Color Straw (Yellow); Urobilinogen Urine Norm (Negative); pH Urine 5 (5-7)
[2021-03-08 17:24] LABS: Absolute Segmented Neutrophil 3.4 10/cmm (1.6-7.1); Band Neutrophils Absolute 1.8 10^3/cmm (0.0-1.2); Segmented Neutrophils 41 %; Total Cells Counted 100 (0-100)
[2021-03-08 17:25] LABS: Absolute Neutrophil 5.3 10^3/cmm (1.4-6.5); Lymphocytes 24 %; Lymphocytes Absolute 2.6 10^3/cmm (1.2-3.4); Monocytes Absolute 0.6 10^3/cmm (0.1-0.6); Platelet Estimate Decreased (Normal)
[2021-03-08 17:30] LABS: Lactic Sepsis W/Reflex 2.1 mmol/L (0.5-2.2)
[2021-03-08 17:30] LABS: Add Urine Culture? Yes; Bacteria Urine 4+ /hpf; RBC Urine 0-4 /hpf (0-2)
[2021-03-08] MEDS: sodium chloride 0.9% 1,000 ML 999 ML IV (17:31)
[2021-03-08] MEDS: insulin regular-human 100 units/1 mL 10 UNIT IVP (17:31)
[2021-03-08 17:35] VITALS: BP 132/80; PULSE 90; RESP 18; O2SAT 96
[2021-03-08 18:08] VITALS: BP 122/81; PULSE 88; RESP 27; O2SAT 95
[2021-03-08 18:09] LABS: Glucose Point of Care 485 mg/dL (70-110)
--- NOTE | 2021-03-08 18:09 | PC.NURSE ---
PATIENT ACCUCHECK 485.
[2021-03-08 18:27] LABS: Reflex Lactate Order REFLEX LACTIC ORDERD
[2021-03-08 19:33] LABS: Glucose Point of Care 328 mg/dL (70-110)
[2021-03-08 20:03] VITALS: BP 128/80; PULSE 84; RESP 16; O2SAT 96
[2021-03-09 14:17] LABS: Coronavirus Test Green County Not Detected
--- NOTE | 2021-03-10 15:18 | PC.NURSE ---
left message for pt to call back and receive covid results
== END 2021-03-08 20:05 | disposition home or self-care (01) ==
PROVIDERS: Family Medicine; Emergency Provider Emergency Medicine; PCP Emergency Medicine Emergency Medical Services
DX: R50.9 Fever, unspecified (principal); R53.81 Other malaise; E11.65 Type 2 diabetes mellitus with hyperglycemia; Z79.84 Long term (current) use of oral hypoglycemic drugs; Z20.822 Contact with and (suspected) exposure to COVID-19
CPT/HCPCS: 36416; 36600; 71045; 80051; 80053; 81001; 82330; 82550; 82805; 82962; 83605; 85007; 85025; 87077; 87086; 87186; 87426; 87635; 93005; 96361; 96374; 99284; J1815; J7030

== ENCOUNTER 2021-12-22 10:50 | Observation (INO) | payer OTHER, SELFPAY ==
[2021-12-22] VITALS (9 sets, daily range): BP systolic 103–146; BP diastolic 63–90; PULSE 72–86; RESP 16–18; TEMP 36.7–37.2; O2SAT 92–97; BMI 29.0
--- NOTE | 2021-12-22 11:17 | CT_ITS ---
WS: [id number] CT ABDOMEN AND PELVIS NONCONTRAST HISTORY: progressive lower abd pain TECHNIQUE: Imaging performed through the abdomen and pelvis. Coronal and sagittal reformats are submi tted. All CT scans at [facility] use at least one of these dose optimization techniques: auto mated exposure control; mA and/or kV adjustment per patient size (includes targeted exams where dose is matched to clinical indication); or iterative reconstruction. DLP: 1750.4 mGy.cm COMPARISON: None. Lower thorax: Benign granuloma RIGHT lower lobe. Heart size is normal. Liver: Mild hepatomegaly with diffuse moderate hepatic steatosis. No bile duct dilatation. Gallbladder: Mildly contracted. No adjacent inflammation. Pancreas: Normal size and attenuation. Normal pancreatic duct. No pancreatitis or mass. Spleen: Granulomatous. Normal size. Adrenal glands: Normal. No mass. Right kidney: Normal size kidney with no obstruction. Exophytic 10 mm nodule upper pole too small to characterize. Left kidney: Normal size kidney with no obstruction. Exophytic 17 mm nodule lower pole cannot be mamadou acterized further without IV contrast. Aorta: Mild atherosclerosis. No free fluid, intraperitoneal air or significant lymphadenopathy. GI tract: Marked distention of the stomach. Rectangular structures within the stomach may be medicina l tablets or recently ingested meal. No small bowel obstruction. No history of an appendectomy. There are surgical clips or calcifications in the expected location of the appendix. The appendix is not d efinitely identified as a separate structure. Numerous diverticula throughout the colon, beginning distal to the splenic flexure. Tortuous sigmoid colon. There is a long segment of colon measuring about 10 cm of acute inflammation. Marked wall thic kening with numerous diverticula and narrowing of the lumen. There is a small interloop collection wh ich is probably an abscess measuring 2.2 x 1.6 cm extending to the RIGHT of the acute diverticulosis. Abscess is encased on the RIGHT by a small bowel loop. Abdominal wall: Small umbilical hernia contains fat only. Pelvis: No free fluid in the pelvis. Well-distended urinary bladder. Osseous structures: No destructive bone lesions. CT/CT abdomen pelvis wo con [id number] IMPRESSION: 1. Acute sigmoid diverticulitis extending over 10 cm with marked wall thickeni ng, narrowing of the lumen and diverticular disease. Favor this is all acute di verticulitis but follow-up after resolution to be sure there is no underlying n eoplasm is recommended. 2. There is a small interloop abscess measuring 2.2 x 1.6 cm extending to the RIGHT of the sigmoid with an overlying small bowel loop. 3. Numerous diverticula in the remaining descending and sigmoid colon. 4. The appendix is not identified. Patient did not provide a history of append icitis.
[2021-12-22 11:31] LABS: Basophils # 0.1 10^3/uL (0.0-0.1); Basophils % 0.4 %; Eosinophils # 0.2 10^3/uL (0.0-0.8); Eosinophils % 1.7 %; Hematocrit 44.4 % (42.0-52.0); Hemoglobin 15.2 g/dL (11.7-16.6); Lymphocytes # 3.1 10^3/uL (0.8-4.8); Mean Corpuscular HGB Conc 34.2 g/dL (30.0-36.0); Mean Corpuscular Hemoglobin 30.9 pg (28.0-34.0); Mean Corpuscular Volume 90.2 fl (80-94); Mean Platelet Volume 10.9 fL (7.4-10.4); Monocytes # 0.9 10^3/uL (0.2-0.9); Monocytes % 6.8 %; Neutrophils % 66.9 %; Nucleated Red Blood Cells % 0 %; Platelet Count 247 10^3/cmm (130-400); Red Blood Count 4.92 10^6/uL (4.1-5.3); Red Cell Distribution Width 12.6 % (12.1-15.1); White Blood Count 12.7 10^3/uL (4.0-10.0)
--- NOTE | 2021-12-22 11:52 | ED_ITS ---
HPI - Abdominal Pain General: Chief Complaint: Abdominal Pain Stated Complaint: lower abdomen pain Time Seen by Provider: 12/22/21 11:05 Source: patient and family Mode of arrival: ambulatory Limitations: no limitations History of Present Illness: This patient presents by private vehicle from his home due to progressive abdominal pain. He states he noted some intermittent lower abdominal discomfort approximately a week ago. He states it is predominantly in his lower abdomen and seem to come and go after with short intervals of cramping or gas pains. He denied any other associated symptoms at that time of onset. He states that it is progressed to becoming more frequent and more sustained and then in the last 24 hours its been continuous. He states he did not sleep well last night decided to come to the emergency department. He again describes as in the lower abdomen across between his hips in the suprapubic area it is pressure and gas-like. He states that riding over in the car was uncomfortable and he would press on his abdomen to kind of keep it from becoming uncomfortable. He states he been having normal bowel movements without any blood or other abnormal appearance. He states he been urinating normally. He has had a prior colon resection for a rectal foreign body and perforation with a temporary colostomy but no other abdominal surgeries. He denies any fevers or chills exposure to infectious disease etc. He has had a prior kidney stone. No history of sexually transmitted diseases. No recent travel, antibiotic use etc. Otherwise has had some mild nasal congestion recently. No fevers chills etc. MD elicited complaint: abdominal pain Location: Suprapubic and Pelvis Severity: moderate Quality: cramping Exacerbating factors: movement Associated Symptoms: Denies change in stool character, chills, dysuria, fever(s), nausea, syncope and vomiting Review of Systems Const: Denies: fever(s), chills or body aches Eyes: Denies: change in vision ENMT: Reports: nasal congestion; Denies: odynophagia, ear or mastoid pain or sinus pain Card: Denies: chest pain, palpitations, swelling of feet/ankles or syncope Resp: Denies: dyspnea, productive cough, non-productive cough or wheezing GI: Denies: nausea, vomiting or change in stool character : Denies: flank pain, difficulty urinating, dysuria, urinary frequency or urinary urgency Musc: Denies: neck pain, back pain, extremity pain or extremity swelling Skin/Breast: Denies: rash or pruritus Neuro: Denies: headache(s), numbness in extremities or weakness in extremities Psych: Denies: anxiety or depression Endo: Denies: polyuria or polydipsia Physical Exam Narrative: EXAM NARRATIVE: He is alert jovial and interactive in no acute distress. Const: COMMON NORMALS: patient oriented x3 and no limitations GENERAL APPEARANCE: cooperative and comfortable NUTRITIONAL APPEARANCE: overweight HENMT: COMMON NORMALS: normocephalic, atraumatic, Normal nasal mucous membranes and turbinates present and moist oral mucous membranes HEAD & SCALP: normocephalic and atraumatic NOSE: Normal nasal mucous membranes and turbinates present Eye: COMMON NORMALS: Equal, round and reactive pupils present, EOMs intact bilaterally and conjunctivae normal CONJUNCTIVA: Yes conjunctivae normal PUPIL: Yes Equal, round and reactive pupils present Neck/C-Spine: COMMON NORMALS: full ROM, no lymphadenopathy, supple and no JVD Chest: COMMONS NORMALS: normal inspection of the chest Resp: COMMON NORMALS: normal respiratory effort, No retractions, No use of accessory muscles and clear to auscultation bilaterally AUSCULTATION: clear to auscultation bilaterally Cardio: COMMON NORMALS: no JVD, regular rate, regular rhythm, No murmurs present (Cardio) and Peripheral pulses 2+ throughout RATE: regular rate RHYTHM: regular rhythm PERIPHERAL PULSES: Peripheral pulses 2+ throughout GI: COMMON NORMALS: Normal to inspection, nondistended, normoactive bowel sounds present OTHER: Abdominal examination reveals mild central obesity. Well-healed left lower abdominal surgical scar. Tenderness to palpation across the lower abdomen particularly in the right lower abdomen. No rebound or guarding. Normal active bowel sounds. No masses. : COMMON NORMALS: Yes no CVA tenderness BLADDER/KIDNEY EXAM: Yes no CVA tenderness Back/Pelvis: COMMON NORMALS: no CVA tenderness, thoracic and lumbar spine normal to inspection, no thoracic nor lumbar tenderness and thoraco-lumbar ROM normal Extremity: COMMON NORMALS: normal to inspection, full ROM, no calf tenderness and no pedal edema Neuro: COMMON NORMALS: patient oriented x3, moves all extremities, no focal motor deficits and no sensory deficits noted Psych: COMMON NORMALS: mental status grossly normal and cooperative Skin: COMMON NORMALS: no rashes or lesions noted and turgor normal GENERAL SKIN EXAM: no rashes or lesions noted and turgor normal Course Reevaluation(s): Reevaluation #1: Patient stable alert and interacting appropriate with family. No new or focal findings on examination. No peritoneal signs at this time or evidence of other concerning findings under other than the localized tenderness as noted previously. Discussed treatment options with patient and family to include observation status for continued reexamination, IV antibiotics etc. We discussed risks and benefits of such course to include the ability to intervene should he worsen or other changes in his condition. He voiced understanding of our discussion and was able to enumerate the risks and benefits back to me however he feels that he would like to have a trial of home therapy. Given he is afebrile he does not have a significant leukocytosis and his clinical exam is reassuring and he is able to eat and drink I think this is not an untenable alternative. He can acknowledge the risks and has intact decision-making capacity and understands the treatment options. His spouse and daughter who are also present support were supportive of his decision also enumerated their support and that they would closely observe him and encouraged return should he develop fever, increasing pain or any other concerns. He is stable at this time to be managed he will be treated with outpatient Augmentin as well as analgesics. Return precautions were discussed. Time: 14:04 Consultations: Consultation #1: Discussed with the general surgery on-call Dr. Campos who recommended expectant management and he will follow as needed. Time: 13:13 Vital Signs: Vital signs: Vital Signs Temperature 98.0 F 12/22/21 10:56 Pulse Rate 79 12/22/21 10:56 Respiratory Rate 16 12/22/21 13:11 Blood Pressure 144/84 12/22/21 10:56 Pulse Oximetry 96 12/22/21 10:56 MDM - Abdominal Pain Medical Decision Making Patient with 1 week of lower abdominal pain who presented to the emergency department with an examination of lower abdominal tenderness. Imaging showed that he had evidence of sigmoid diverticulitis with a small localized abscess without any evidence of perforation, free fluid etc. He was offered observation status for continued reevaluation and IV antibiotics and decided to he would like to be discharged home and continue treatment in that location with acknowledgment of risks and benefits and return precautions. No evidence of other conditions at this time but again the limitations of the evaluation and potential less desirable outcomes were discussed. Differential Diagnosis Likely abdominal pain and diverticulitis; Unlikely acute appendicitis or small bowel obstruction Medical Records I reviewed the patient's medical records. Lab Data I reviewed the patient's lab results. : 12/22/21 11:20 12/22/21 12:35 Labs/Radiology: Radiology Impressions Abdomen/Pelvis CT 12/22/21 11:17 IMPRESSION: 1. Acute sigmoid diverticulitis extending over 10 cm with marked wall thickening, narrowing of the lumen and diverticular disease. Favor this is all acute diverticulitis but follow-up after resolution to be sure there is no underlying neoplasm is recommended. 2. There is a small interloop abscess measuring 2.2 x 1.6 cm extending to the RIGHT of the sigmoid with an overlying small bowel loop. 3. Numerous diverticula in the remaining descending and sigmoid colon. 4. The appendix is not identified. Patient did not provide a history of appendicitis. Laboratory Results WBC 12.7 10^3/uL (4.0-10.0) H 12/22/21 11:20 RBC 4.92 10^6/uL (4.1-5.3) 12/22/21 11:20 Hgb 15.2 g/dL (11.7-16.6) 12/22/21 11:20 Hct 44.4 % (42.0-52.0) 12/22/21 11:20 MCV 90.2 fl (80-94) 12/22/21 11:20 MCH 30.9 pg (28.0-34.0) 12/22/21 11:20 MCHC 34.2 g/dL (30.0-36.0) 12/22/21 11:20 RDW 12.6 % (12.1-15.1) 12/22/21 11:20 Plt Count 247 10^3/cmm (130-400) 12/22/21 11:20 MPV 10.9 fL (7.4-10.4) H 12/22/21 11:20 Neut % (Auto) 66.9 % 12/22/21 11:20 Lymph % (Auto) 24.0 % 12/22/21 11:20 Ashley % (Auto) 6.8 % 12/22/21 11:20 Eos % (Auto) 1.7 % 12/22/21 11:20 Baso % (Auto) 0.4 % 12/22/21 11:20 Neut # (Auto) 8.50 10^3/uL (1.8-7.7) H 12/22/21 11:20 Lymph # (Auto) 3.1 10^3/uL (0.8-4.8) 12/22/21 11:20 Ashley # (Auto) 0.9 10^3/uL (0.2-0.9) 12/22/21 11:20 Eos # (Auto) 0.2 10^3/uL (0.0-0.8) 12/22/21 11:20 Baso # (Auto) 0.1 10^3/uL (0.0-0.1) 12/22/21 11:20 Nucleated RBC % (auto) 0 % 12/22/21 11:20 Nucleated RBCs # 0.0 /100WBC 12/22/21 11:20 Sodium 135 mmol/L (136-145) L 12/22/21 12:35 Potassium 4.8 mmol/L (3.5-5.1) 12/22/21 12:35 Chloride 99 mmol/L (98-107) 12/22/21 12:35 Carbon Dioxide 27 mmol/L (22-29) 12/22/21 12:35 Anion Gap 13.8 (5-19) 12/22/21 12:35 BUN 15 mg/dL (8-23) 12/22/21 12:35 Creatinine 0.7 mg/dL (0.7-1.2) 12/22/21 12:35 GFR Calculation 112.1 mL/min (90-130) 12/22/21 12:35 Glucose 155 mg/dL (65-115) H 12/22/21 12:35 Calculated Osmolality 284 mOsm/kg (285-295) L 12/22/21 12:35 Calcium 8.9 mg/dL (8.5-10.5) 12/22/21 12:35 Total Bilirubin 0.8 mg/dL (0.15-1.2) 12/22/21 12:35 AST 31 U/L (0-40) 12/22/21 12:35 ALT 49 U/L (0-41) H 12/22/21 12:35 Alkaline Phosphatase 93 IU/L (40-130) 12/22/21 12:35 Total Protein 8.3 g/dL (6.6-8.7) 12/22/21 12:35 Albumin 4.6 g/dL (3.5-5.2) 12/22/21 12:35 Globulin 3.7 g/dL (1.3-4.6) 12/22/21 12:35 Lipase 57 U/L (13-60) 12/22/21 12:35 Urine Color Yellow (Yellow) 12/22/21 12:02 Urine Appearance Hazy (CLEAR) A 12/22/21 12:02 Urine pH 5 (5-7) 12/22/21 12:02 Ur Specific [place] 1.015 (1.005-1.030) 12/22/21 12:02 Urine Protein Neg (Negative) 12/22/21 12:02 Urine Glucose (UA) Norm (Normal) 12/22/21 12:02 Urine Ketones Negative (Negative) 12/22/21 12:02 Urine Blood 2+ (Negative) H 12/22/21 12:02 Urine Nitrate Positive (Negative) H 12/22/21 12:02 Urine Bilirubin Neg (Negative) 12/22/21 12:02 Urine Urobilinogen Norm mg/dL (Negative) 12/22/21 12:02 Ur Leukocyte Esterase Trace (Negative) H 12/22/21 12:02 Urine RBC 0-4 /hpf (0-2) H 12/22/21 12:02 Urine WBC 5-10 /hpf (0-5) H 12/22/21 12:02 Ur Squamous Epith Cells 0-4 /hpf (0-5) H 12/22/21 12:02 Amorphous Sediment Not Reportable 12/22/21 12:02 Urine Bacteria 4+ /hpf (NONE) H 12/22/21 12:02 Discharge Plan Discharge Patient Disposition: Home Clinical Impression: Diverticulitis, Abdominal pain Condition: Stable Prescriptions: New amoxicillin-pot clavulanate 875-125 mg tablet 1 tab PO Q12H Qty: 14 0RF hydrocodone-acetaminophen 5-325 mg tablet 1 tab PO Q8H PRN (Reason: pain) Qty: 10 0RF No Action garlic 100 mg Tablet 100 mg PO DAILY 0RF Cayenne Plus Garlic 200-300 mg Capsule 1 cap PO DAILY 0RF ascorbic acid (vitamin C) [Vitamin C] 250 mg Tablet 250 mg PO DAILY 0RF gemfibrozil 600 mg Tablet 600 mg PO DAILY 0RF Panax Ginseng 150 mg Capsule 150 mg PO DAILY 0RF Aspirin Extra Strength 500 mg Tablet 500 mg PO BID PRN (Reason: Pain) 0RF Rx Instructions: while awake ginkgo biloba 40 mg Tablet 40 mg PO BID 0RF Rx Instructions: give with meal/snack glucose 4 gram Tablet,Chewable 4 g PO Q15M PRN (Reason: Hypoglycemia) 0RF Rx Instructions: until symptoms of low blood sugar are controlled ginseng 250 mg Capsule 250 mg PO DAILY 0RF cholecalciferol (vitamin D3) 25 mcg (1,000 unit) Capsule 25 mcg PO DAILY 0RF metformin 1,000 mg Tablet Extended Release 24hr 500 mg PO DAILY 0RF Lantus Solostar U-100 Insulin 100 unit/mL (3 mL) Insulin Pen 10 unit SUBCUT DAILY 0RF Fish Oil 500 mg Capsule 500 mg PO BID 0RF Discharge Orders: Discharge ED (Routine); Ordered 12/22/21 Ordered By: Carroll Blanton Referrals: Evelio Pisano, [Primary Care Provider] - Discharge Diet: Advance as tolerated Discharge Activity: Increase activity as tolerated Patient Instructions: Diverticulitis (ED), Abdominal Pain (ED), Opioid Safety Activity Restrictions/Additional Instructions: Take the medications we have prescribed both for your infection as well as as needed for pain. You may eat a liquid followed by a more regular diet as you feel better. At any time should you develop fever, increasing pain, inability to tolerate medications or any concerns at any time return to this or the nearest emergency department. 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
[2021-12-22 13:11] LABS: Alanine Aminotransferase 49 U/L (0-41); Albumin Level 4.6 g/dL (3.5-5.2); Alkaline Phosphatase 93 IU/L (40-130); Aspartate Amino Transferase 31 U/L (0-40); Blood Urea Nitrogen 15 mg/dL (8-23); Calcium 8.9 mg/dL (8.5-10.5); Carbon Dioxide 27 mmol/L (22-29); Chloride 99 mmol/L (98-107); Globulin 3.7 g/dL (1.3-4.6); Glomerular Filtration Rate 112.1 mL/min (90-130); Glucose 155 mg/dL (65-115); Lipase 57 U/L (13-60); Osmolality Calculated 284 mOsm/kg (285-295); Sodium 135 mmol/L (136-145); Total Bilirubin 0.8 mg/dL (0.15-1.2); Total Protein 8.3 g/dL (6.6-8.7)
[2021-12-22] MEDS: ampicillin-sulbactam 3 GM in sodium chloride 0.9% (plus) 50 ML IV (13:11)
[2021-12-22] MEDS: morphine 4 mg/mL SDV 1 mL IVP (13:11)
[2021-12-22] MEDS: ondansetron 2 mg/ML SDV 2 mL 4 MG IVP (13:11)
[2021-12-22 13:12] LABS: Bilirubin Urine Neg (Negative); Blood Urine 2+ (Negative); Glucose Urine UA Norm (Normal); Ketones Urine Negative (Negative); Nitrate Urine Positive (Negative); Protein Urine Neg (Negative); Specific Gravity, Urine 1.015 (1.005-1.030); Urine Appearance Hazy (CLEAR); Urine Color Yellow (Yellow); Urobilinogen Urine Norm (Negative); pH Urine 5 (5-7)
[2021-12-22 13:12] LABS: Anion Gap 13.8 (5-19); Potassium 4.8 mmol/L (3.5-5.1)
[2021-12-22 13:13] LABS: Add Urine Culture? Yes; Add Urine Microscopic? YES; Bacteria Urine 4+ /hpf; Leukocyte Esterase Urine Trace (Negative); RBC Urine 0-4 /hpf (0-2); Squamous Epithelial Cell Urine 0-4 /hpf (0-5)
--- NOTE | 2021-12-22 15:09 | PM.HP ---
Providers/Chief Complaint Primary Care Provider: Evelio Pisano DO Chief Complaint: lower abdomen pain History of Present Illness Marlon Whitehead is a 66 year old male who presented to hospital for worsening abdominal pain. Patient stating that his symptom started 1 week ago, last night his pain got worse and this morning he was not able to bear his pain that prompted his visit to the ER. Patient stating that he had colostomy in the past secondary to abdominal trauma which was reversed, that was quite some years ago, other than diabetes she does not have any history of [place], CHF, no history of colon cancer, previous colonoscopies were unremarkable In the ER he has been diagnosed with diverticulitis, no sign of sepsis Microabscess noted Review of Systems Const: Reports: chills and body aches; Denies: fever(s) Eyes: Denies: change in vision ENMT: Denies: throat pain Card: Denies: chest pain Resp: Denies: dyspnea GI: Reports: abdominal pain and nausea : Denies: flank pain Musc: Denies: neck pain Skin/Breast: Denies: rash Neuro: Denies: headache(s) Psych: Denies: anxiety Endo: Denies: polyuria Hans/Lymph: Denies: easy bruising All/Imm: Denies: urticaria Medications/Allergies Home Medications Medication Instructions Recorded Confirmed Last Taken Type Frisian ginseng root extract 150 mg 150 mg PO DAILY 03/08/21 12/22/21 12/21/21 History capsule ascorbic acid (vitamin C) 250 mg 250 mg PO DAILY 03/08/21 12/22/21 12/21/21 History tablet (Vitamin C) capsicum-garlic 200 mg-300 mg 1 cap PO DAILY 03/08/21 12/22/21 12/21/21 History capsule garlic 100 mg tablet 100 mg PO DAILY 03/08/21 12/22/21 12/21/21 History gemfibrozil 600 mg tablet 600 mg PO DAILY 03/08/21 12/22/21 12/21/21 History amoxicillin 875 mg-potassium 1 tab PO Q12H #14 tab 12/22/21 Unknown Rx clavulanate 125 mg tablet aspirin 500 mg tablet 500 mg PO BID PRN 12/22/21 12/22/21 12/21/21 History cholecalciferol (vitamin D3) 25 25 mcg PO DAILY 06/12/22/21 12/21/21 History mcg (1,000 unit) capsule ginkgo biloba 40 mg tablet 40 mg PO BID 12/22/21 12/22/21 12/21/21 History ginseng 250 mg capsule 250 mg PO DAILY 12/22/21 12/22/21 12/21/21 History glucose 4 gram chewable tablet 4 g PO Q15M PRN 12/22/21 12/22/21 Unknown History hydrocodone 5 mg-acetaminophen 325 1 tab PO Q8H PRN #10 tab 12/22/21 Unknown Rx mg tablet insulin glargine 100 unit/mL (3 10 unit SUBCUT DAILY 12/22/21 12/22/21 12/21/21 History mL) subcutaneous pen (Lantus Solostar U-100 Insulin) metformin 1,000 mg tablet,extended 500 mg PO DAILY 12/22/21 12/22/21 12/21/21 History release 24hr omega-3 fatty acids 500 mg capsule 500 mg PO BID 12/22/21 12/22/21 12/21/21 History Allergies Allergy/AdvReac Type Severity Reaction Status Date / Time No Known Allergies Allergy Verified 12/22/21 13:10 PFSH Acute PFSH: Medical History (Updated 12/22/21 @ 17:55 by Aspen Brown MD) Diabetes Trauma Surgical History History of colostomy History of colostomy reversal Vitals/I&O/Wt Last Vital Signs Temp 98.0 F 12/22/21 10:56 Pulse 79 12/22/21 10:56 Resp 16 12/22/21 13:11 BP 144/84 12/22/21 10:56 Pulse Ox 96 12/22/21 10:56 Weight last 48 hrs Weight 83.915 kg Physical Exam Narrative: Very pleasant cooperative male Abdomen exam is benign No rigidity guarding no sign of peritonitis No rebound tenderness No audible stridor or wheezing Saturating well on room air Nonfocal neuro exam S1, S2 EOMI, PERRLA Nonfocal neuro exam Data : 12/22/21 11:20 12/22/21 12:35 A&P Assessment and plan (1) Diverticulitis: Status: Acute (2) Abdominal pain: Status: Acute (3) Diverticulitis of large intestine with complication: Status: Acute Plan Diverticulitis with microabscess No sign of sepsis Patient is afebrile Abdominal exam is benign Conservative management Case Presented Dr. Campos Who Agreed with Conservative Management for Now Start Zosyn, IV Fluids NPO now Dilaudid for Analgesia Patient Is Stating. Colonoscopies Were Unremarkable Full Code Type 2 Diabetes, Check Sugar Every 4 Hours DVT Prophylaxis: SCDs Avoid Anticoagulating Agent Because of Risk of Perforation Serial Abdominal Exams Attestations Medical Necessity Statement*: Anticipating discharge within 48 hours for management of abscess and diverticulitis Time Spent in Patient Care: 40 Coding Level of Care Code Acute Direct Support Professional Caregiver for [facility] Fwd Diagnoses Diverticulitis K57.92 Abdominal pain R10.9 Diverticulitis of large intestine with complication K57.32
[2021-12-22 16:35] LABS: Glucose Point of Care 115 mg/dL (70-110)
--- NOTE | 2021-12-22 17:25 | P.CONIM_ITS ---
Providers/Reason For Consult Consulting Physician/Specialty*: Dr. Sky Campos DO Reason for Consult*: Abdominal pain Attending Physician: Aspen Brown MD Primary Care Provider: Evelio Pisano DO History of Present Illness History of Present Illness Abdominal painLawrdayanara Whitehead is a 66 year old male who presented to the hospital with 1 week history of right lower quadrant abdominal pain. He has a past medical history of rectal trauma which resulted in a colostomy and subsequent reversal. He reports that he began having 1 week ago. The pain does not radiate pain is sharp and severe and constant. Palpation makes the pain worse. Nothing makes pain better. He has had alternating diarrhea and constipation. Denies any fever or chills. Denies any hematochezia or melena. A CT abdomen and pelvis in the ER revealed acute diverticulitis complicated by a 2.2 cm pericolonic abscess. Review of Systems General: Reports: 10 or more systems reviewed and unremarkable except in HPI and below Medications/Allergies Home Medications Medication Instructions Recorded Confirmed Last Taken Type Romanian ginseng root extract 150 mg 150 mg PO DAILY 03/08/21 12/22/21 12/21/21 History capsule ascorbic acid (vitamin C) 250 mg 250 mg PO DAILY 03/08/21 12/22/21 12/21/21 History tablet (Vitamin C) capsicum-garlic 200 mg-300 mg 1 cap PO DAILY 03/08/21 12/22/21 12/21/21 History capsule garlic 100 mg tablet 100 mg PO DAILY 03/08/21 12/22/21 12/21/21 History gemfibrozil 600 mg tablet 600 mg PO DAILY 03/08/21 12/22/21 12/21/21 History amoxicillin 875 mg-potassium 1 tab PO Q12H #14 tab 12/22/21 Unknown Rx clavulanate 125 mg tablet aspirin 500 mg tablet 500 mg PO BID PRN 12/22/21 12/22/21 12/21/21 History cholecalciferol (vitamin D3) 25 25 mcg PO DAILY 12/22/21 12/22/21 12/21/21 His tory mcg (1,000 unit) capsule ginkgo biloba 40 mg tablet 40 mg PO BID 12/22/21 12/22/21 12/21/21 History ginseng 250 mg capsule 250 mg PO DAILY 0612/22/21 12/21/21 History glucose 4 gram chewable tablet 4 g PO Q15M PRN 12/22/21 12/22/21 Unknown History hydrocodone 5 mg-acetaminophen 325 1 tab PO Q8H PRN #10 tab 12/22/21 Unknown Rx mg tablet insulin glargine 100 unit/mL (3 10 unit SUBCUT DAILY 12/22/21 12/22/21 12/21/21 History mL) subcutaneous pen (Lantus Solostar U-100 Insulin) metformin 1,000 mg tablet,extended 500 mg PO DAILY 12/22/21 12/22/21 12/21/21 History release 24hr omega-3 fatty acids 500 mg capsule 500 mg PO BID 12/22/21 12/22/21 12/21/21 History Allergies Allergy/AdvReac Type Severity Reaction Status Date / Time No Known Allergies Allergy Verified 12/22/21 13:10 Current Medications Generic Name Dose Route Start Last Admin Trade Name Freq PRN Reason Stop Dose Admin Insulin Human Lispro 0 unit 12/22/21 18:00 12/22/21 16:33 Insulin Lispro 100 Unit/1 Ml SUBCUT Not Given [facility] Protocol PFSH Acute PFSH: Surgical History History of colostomy History of colostomy reversal Vitals/I&O/Wt Last Vital Signs Temp 98.0 F 12/22/21 10:56 Pulse 76 12/22/21 17:18 Resp 18 12/22/21 17:18 BP 146/90 12/22/21 15:40 Pulse Ox 95 12/22/21 17:18 12/22/21 12/22/21 12/22/21 06:59 14:59 22:59 Intake Total 50 / 50 Balance 50 / 50 Weight last 48 hrs Weight 185 lb Physical Exam Narrative: General : Patient is well developed , no acute distress, oriented x3 Head : Normal cephalic, a-traumatic. Ears : Pinnae and external canal are normal. Hearing is normal. Eyes : PERRLA, Sclera and injection are normal. No conjunctival discharge. Nose : Mucous membranes are without erythema. Throat : buccal mucosa is normal, gums are without significant recession or hypertrophy. Lungs : Equal chest rise bilaterally, no use of accessory muscles, trachea is midline. Cor : Rate and rhythm are normal. Abdomen : Soft, ND, mild right lower quadrant and suprapubic tenderness, no g/r/m Extremities : No edema, no cyanosis or clubbing, dorsalis pedis pulses are present bilaterally, non-tender to palpation of calves. Upper extremities are normal bilaterally. Back : non-tender to palpation, no CVA tenderness. Neuro : CN II - XII intact, Upper and lower extremities have equal and full s trength Data : 12/22/21 11:20 12/22/21 12:35 A&P Assessment and plan (1) Abdominal pain: Status: Acute (2) Diverticulitis of large intestine with complication: Status: Acute Plan Antibiotics Bowel rest Serial abdominal exams Hopefully we can treat this conservatively He will need a colonoscopy in 6 to 8 weeks No acute surgical intervention Medical management per hospitalist Coding Level of Care Code Acute Line Patroller for g Fwd Diagnoses Abdominal pain R10.9 Diverticulitis of large intestine with complication K57.32
[2021-12-22] MEDS: dextrose 5%-sod chloride 0.45% 1,000 ML 75 ML IV (17:37)
[2021-12-22] MEDS: HYDROmorphone 1 mg/mL INJ 1 mL 0.2 MG IVP (17:38)
[2021-12-22] MEDS: piperacillin-tazobactam 3.375 GM in sodium chloride 0.9% (plus) 50 ML IV (20:19)
[2021-12-22] MEDS: acetaminophen 500 mg Tablet PO (20:21)
[2021-12-22 20:47] LABS: Glucose Point of Care 144 mg/dL (70-110)
[2021-12-22 21:20] LABS: Procalcitonin 0.14 ng/mL (0-0.5)
[2021-12-22 22:19] LABS: Estmated Average Glucose 154
[2021-12-23] VITALS (7 sets, daily range): BP systolic 110–137; BP diastolic 61–86; PULSE 68–89; RESP 16–20; TEMP 37.1–37.5; O2SAT 92–94
[2021-12-23 00:32] LABS: Glucose Point of Care 163 mg/dL (70-110)
[2021-12-23 03:01] LABS: Basophils % 0.3 %; Eosinophils # 0.2 10^3/uL (0.0-0.8); Eosinophils % 1.4 %; Hematocrit 41.1 % (42.0-52.0); Lymphocytes # 3.5 10^3/uL (0.8-4.8); Lymphocytes % 29.7 %; Mean Corpuscular HGB Conc 34.1 g/dL (30.0-36.0); Mean Corpuscular Hemoglobin 30.6 pg (28.0-34.0); Mean Corpuscular Volume 89.7 fl (80-94); Mean Platelet Volume 10.4 fL (7.4-10.4); Monocytes # 1.1 10^3/uL (0.2-0.9); Neutrophils # 7.01 10^3/uL (1.8-7.7); Neutrophils % 59.3 %; Nucleated Red Blood Cells % 0 %; Platelet Count 196 10^3/cmm (130-400); Red Blood Count 4.58 10^6/uL (4.1-5.3); Red Cell Distribution Width 12.7 % (12.1-15.1); White Blood Count 11.8 10^3/uL (4.0-10.0)
[2021-12-23 03:22] LABS: Anion Gap 14.4 (5-19); Blood Urea Nitrogen 11 mg/dL (8-23); Calcium 8.5 mg/dL (8.5-10.5); Carbon Dioxide 25 mmol/L (22-29); Chloride 101 mmol/L (98-107); Glomerular Filtration Rate 96.1 mL/min (90-130); Glucose 161 mg/dL (65-115); Osmolality Calculated 285 mOsm/kg (285-295); Potassium 4.4 mmol/L (3.5-5.1); Sodium 136 mmol/L (136-145)
[2021-12-23] MEDS: piperacillin-tazobactam 3.375 GM in sodium chloride 0.9% (plus) 50 ML IV ×3 (03:27→19:35)
[2021-12-23] MEDS: dextrose 5%-sod chloride 0.45% 1,000 ML 75 ML IV ×2 (03:32→21:14)
[2021-12-23] MEDS: HYDROmorphone 1 mg/mL INJ 1 mL 0.2 MG IVP ×2 (03:33→17:38)
[2021-12-23 06:48] LABS: Glucose Point of Care 167 mg/dL (70-110)
[2021-12-23 07:11] LABS: Glucose Point of Care 167 mg/dL (70-110)
--- NOTE | 2021-12-23 08:51 | PC.NURSE ---
Bedside report completed this morning with TRACEE Santamaria.
--- NOTE | 2021-12-23 09:09 | P.PN_ITS ---
Subjective Subjective: Patient is stating that he is experiencing right lower quadrant pain which she describes as a knot Appendix was not visualized on the CT scan abd Patient has remained afebrile No active nausea, vomiting, Leukocytosis trending down Hemoglobin A1c 7 Vitals/I&O/Wt Last Vital Signs Temp 98.8 F 12/23/21 07:34 Pulse 71 12/23/21 07:34 Resp 17 12/23/21 07:34 BP 114/61 12/23/21 07:34 Pulse Ox 94 12/23/21 07:34 12/22/21 12/23/21 12/23/21 22:59 06:59 14:59 Intake Total 50 / 50 793.75 / 843.75 Balance 50 / 50 793.75 / 843.75 Weight last 48 hrs Weight 83.915 kg Weight 83.915 kg Physical Exam Narrative: Patient was laying supine He was keeping hands around right lower quadrant It is tender to palpation however no active guarding rigidity or peritonitis Left lower quadrant is not painful Currently on room air No audible stridor or wheezing S1, S2 Euvolemic Patient is hungry and craving food Appropriate mood and affect Data : 12/23/21 02:18 12/23/21 02:18 Micro: Microbiology 12/22/21 12:02 Urine Culture - Preliminary Urine,Clean Catch Gram Negative Rods A&P Assessment and plan (1) Diverticulitis of large intestine with complication: Status: Acute (2) Diverticulitis: Status: Acute (3) Abdominal pain: Status: Acute Plan Diverticulitis with diverticulitis with abscess I would not advance his diet today patient is complaining of right lower quadra nt, appendix was not visualized on CT scan of abdomen pelvis yesterday However he has not spiked fever, leukocytosis trending down Currently n.p.o. getting IV fluids and antibiotics Will touch base with Dr. 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
--- NOTE | 2021-12-23 12:09 | P.PN_ITS ---
Subjective Subjective: Patient reports that his pain is about the same. Denies any nausea or vomiting. Denies bowel movement. Positive flatus. Vitals/I&O/Wt Last Vital Signs Temp 99.3 F 12/23/21 11:15 Pulse 77 12/23/21 11:15 Resp 16 12/23/21 11:15 BP 132/79 12/23/21 11:15 Pulse Ox 92 12/23/21 11:15 12/22/21 12/23/21 12/23/21 22:59 06:59 14:59 Intake Total 50 / 50 793.75 / 843.75 50 / 50 Balance 50 / 50 793.75 / 843.75 50 / 50 Weight last 48 hrs Weight 185 lb Weight 185 lb Physical Exam Narrative: General: No acute distress, awake alert and oriented x3 Abdomen: Soft, nondistended, tender to palpation right lower quadrant, no guarding rebound or masses Data : 12/23/21 02:18 12/23/21 02:18 Micro: Microbiology 12/22/21 12:02 Urine Culture - Preliminary Urine,Clean Catch Gram Negative Rods A&P Assessment and plan (1) Abdominal pain: Status: Acute (2) Diverticulitis of large intestine with complication: Status: Acute Plan Antibiotics Clear liquid diet Serial abdominal exams Hopefully we can treat this conservatively He will need a colonoscopy in 6 to 8 weeks No acute surgical intervention Medical management per hospitalist Attestations Medical Necessity Statement*: Patient require at least 2 more nights in the hospital for IV antibiotics and diet management Coding Level of Care Code Acute 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
[2021-12-23 12:26] LABS: Glucose Point of Care 154 mg/dL (70-110)
[2021-12-23 16:57] LABS: Glucose Point of Care 142 mg/dL (70-110)
[2021-12-23 22:40] LABS: Glucose Point of Care 125 mg/dL (70-110)
[2021-12-23 22:40] LABS: Glucose Point of Care 138 mg/dL (70-110)
[2021-12-23 22:40] LABS: Glucose Point of Care 134 mg/dL (70-110)
[2021-12-24] VITALS (7 sets, daily range): BP systolic 116–138; BP diastolic 64–80; PULSE 60–77; RESP 16–20; TEMP 36.6–36.9; O2SAT 91–96
--- NOTE | 2021-12-24 00:31 | PC.NURSE ---
Pt assisted to standing position to adjust back brace, which he stated, is killing me. Pt unsteady on feet, requiring the bedrail for balance.
[2021-12-24 04:28] LABS: Basophils # 0.1 10^3/uL (0.0-0.1); Basophils % 0.7 %; Eosinophils # 0.3 10^3/uL (0.0-0.8); Hematocrit 40.4 % (42.0-52.0); Hemoglobin 13.5 g/dL (11.7-16.6); Lymphocytes # 2.7 10^3/uL (0.8-4.8); Lymphocytes % 39.2 %; Mean Corpuscular HGB Conc 33.4 g/dL (30.0-36.0); Mean Corpuscular Hemoglobin 30.4 pg (28.0-34.0); Mean Platelet Volume 10.3 fL (7.4-10.4); Monocytes # 0.7 10^3/uL (0.2-0.9); Monocytes % 9.3 %; Neutrophils # 3.24 10^3/uL (1.8-7.7); Neutrophils % 46.7 %; Nucleated Red Blood Cells % 0 %; Platelet Count 183 10^3/cmm (130-400); Red Blood Count 4.44 10^6/uL (4.1-5.3); Red Cell Distribution Width 12.4 % (12.1-15.1)
[2021-12-24] MEDS: HYDROmorphone 1 mg/mL INJ 1 mL 0.2 MG IVP (04:40)
[2021-12-24] MEDS: piperacillin-tazobactam 3.375 GM in sodium chloride 0.9% (plus) 50 ML IV (04:45)
[2021-12-24 04:48] LABS: Alanine Aminotransferase 33 U/L (0-41); Albumin Level 3.8 g/dL (3.5-5.2); Alkaline Phosphatase 68 IU/L (40-130); Aspartate Amino Transferase 22 U/L (0-40); Blood Urea Nitrogen 9 mg/dL (8-23); C Reactive Protein 119.1 mg/L (0.0-4.9); Calcium 8.5 mg/dL (8.5-10.5); Carbon Dioxide 28 mmol/L (22-29); Chloride 102 mmol/L (98-107); Globulin 3.3 g/dL (1.3-4.6); Glomerular Filtration Rate 96.1 mL/min (90-130); Glucose 144 mg/dL (65-115); Osmolality Calculated 287 mOsm/kg (285-295); Sodium 138 mmol/L (136-145); Total Bilirubin 0.9 mg/dL (0.15-1.2); Total Protein 7.1 g/dL (6.6-8.7)
[2021-12-24 07:00] LABS: Glucose Point of Care 140 mg/dL (70-110)
[2021-12-24 11:43] LABS: Glucose Point of Care 158 mg/dL (70-110)
--- NOTE | 2021-12-24 12:31 | P.DS_ITS ---
Discharge Providers Date of Admission: 12/22/21 14:23 Date of Discharge: December 24, 2021 Attending Provider at Admission: Aspen Brown MD Attending Provider at Discharge: Aspen Brown MD Primary Care Provider: Evelio Pisano DO Diagnoses at Discharge Discharge Diagnosis (1) Abdominal pain: Status: Acute (2) Diverticulitis of large intestine with complication: Status: Acute Reason for Visit Reason for Visit: lower abdomen pain Hospital Course Hospital Course 66-year-old male who was diagnosed with diverticulitis with 2.2 x1.6 cm abscess, he was managed conservatively, his abdomen exam was benign, abdominal pain subsided, leukocytosis improved, he remained afebrile, his diet was advanced, no active nausea or vomiting, his urine culture did grow Klebsiella, he will be discharged on Augmentin. He will need colonoscopy after 6 to 8 weeks. Follow- up with Dr. Espinal. Patient never had any symptoms of UTI. Might need Dr. Mcmullen urology follow-up appointment for UTI in male. No signs of hydronephro sis, on CT scan of abdomen pelvis 10 mm and 17 mm nodules were noted on the kidneys no active kidney stones. No signs of hydronephrosis. Physical Exam Narrative: Abdomen is benign Bowel sound present Nontender No signs of rigidity guarding or peritonitis Awake and alert Dehydrated No acute distress Nonfocal neuro exam Saturating well on room air Discharge Data Studies Completed and Pending Completed Studies During Hospitalization Category Date Time Status CT abdomen pelvis con [id number] Urgent Cat Scan 12/22/21 11:17 Completed Radiology Impressions Abdomen/Pelvis CT 12/22/21 11:17 IMPRESSION: 1. Acute sigmoid diverticulitis extending over 10 cm with marked wall thickening, narrowing of the lumen and diverticular disease. Favor this is all acute diverticulitis but follow-up after resolution to be sure there is no underlying neoplasm is recommended. 2. There is a small interloop abscess measuring 2.2 x 1.6 cm extending to the RIGHT of the sigmoid with an overlying small bowel loop. 3. Numerous diverticula in the remaining descending and sigmoid colon. 4. The appendix is not identified. Patient did not provide a history of appendicitis. Laboratory Results WBC 7.0 10^3/uL (4.0-10.0) 12/24/21 03:54 RBC 4.44 10^6/uL (4.1-5.3) 12/24/21 03:54 Hgb 13.5 g/dL (11.7-16.6) 12/24/21 03:54 Hct 40.4 % (42.0-52.0) L 12/24/21 03:54 MCV 91.0 fl (80-94) 12/24/21 03:54 MCH 30.4 pg (28.0-34.0) 12/24/21 03:54 MCHC 33.4 g/dL (30.0-36.0) 12/24/21 03:54 RDW 12.4 % (12.1-15.1) 12/24/21 03:54 Plt Count 183 10^3/cmm (130-400) 12/24/21 03:54 MPV 10.3 fL (7.4-10.4) 12/24/21 03:54 Neut % (Auto) 46.7 % 12/24/21 03:54 Lymph % (Auto) 39.2 % 12/24/21 03:54 [place] % (Auto) 9.3 % 12/24/21 03:54 Eos % (Auto) 4.0 % 12/24/21 03:54 Baso % (Auto) 0.7 % 12/24/21 03:54 Neut # (Auto) 3.24 10^3/uL (1.8-7.7) 12/24/21 03:54 Lymph # (Auto) 2.7 10^3/uL (0.8-4.8) 12/24/21 03:54 [place] # (Auto) 0.7 10^3/uL (0.2-0.9) 12/24/21 03:54 Eos # (Auto) 0.3 10^3/uL (0.0-0.8) 12/24/21 03:54 Baso # (Auto) 0.1 10^3/uL (0.0-0.1) 12/24/21 03:54 Nucleated RBC % (auto) 0 % 12/24/21 03:54 Nucleated RBCs # 0.0 /100WBC 12/24/21 03:54 Sodium 138 mmol/L (136-145) 12/24/21 03:54 Potassium 4.0 mmol/L (3.5-5.1) 12/24/21 03:54 Chloride 102 mmol/L (98-107) 12/24/21 03:54 Carbon Dioxide 28 mmol/L (22-29) 12/24/21 03:54 Anion Gap 12.0 (5-19) 12/24/21 03:54 BUN 9 mg/dL (8-23) 12/24/21 03:54 Creatinine 0.8 mg/dL (0.7-1.2) 12/24/21 03:54 GFR Calculation 96.1 mL/min (90-130) 12/24/21 03:54 Glucose 144 mg/dL (65-115) H 12/24/21 03:54 POC Glucose 158 mg/dL (70-110) H 12/24/21 10:46 Estimat Average Glucose 154 12/22/21 12:35 Hemoglobin A1c 7.0 % (4.0-6.0) H 12/22/21 12:35 Calculated Osmolality 287 mOsm/kg (285-295) 12/24/21 03:54 Calcium 8.5 mg/dL (8.5-10.5) 12/24/21 03:54 Magnesium 2.0 mg/dL (1.7-2.3) 12/23/21 02:18 Total Bilirubin 0.9 mg/dL (0.15-1.2) 12/24/21 03:54 AST 22 U/L (0-40) 12/24/21 03:54 ALT 33 U/L (0-41) 12/24/21 03:54 Alkaline Phosphatase 68 IU/L (40-130) 12/24/21 03:54 C-Reactive Protein 119.1 mg/L (0.0-4.9) H 12/24/21 03:54 Total Protein 7.1 g/dL (6.6-8.7) 12/24/21 03:54 Albumin 3.8 g/dL (3.5-5.2) 12/24/21 03:54 Globulin 3.3 g/dL (1.3-4.6) 12/24/21 03:54 Lipase 57 U/L (13-60) 12/22/21 12:35 Procalcitonin 0.14 ng/mL (0-0.5) 12/22/21 12:35 Urine Color Yellow (Yellow) 12/22/21 12:02 Urine Appearance Hazy (CLEAR) A 12/22/21 12:02 Urine pH 5 (5-7) 12/22/21 12:02 Ur Specific Oneco 1.015 (1.005-1.030) 12/22/21 12:02 Urine Protein Neg (Negative) 12/22/21 12:02 Urine Glucose (UA) Norm (Normal) 12/22/21 12:02 Urine Ketones Negative (Negative) 12/22/21 12:02 Urine Blood 2+ (Negative) H 12/22/21 12:02 Urine Nitrate Positive (Negative) H 12/22/21 12:02 Urine Bilirubin Neg (Negative) 12/22/21 12:02 Urine Urobilinogen Norm mg/dL (Negative) 12/22/21 12:02 Ur Leukocyte Esterase Trace (Negative) H 12/22/21 12:02 Urine RBC 0-4 /hpf (0-2) H 12/22/21 12:02 Urine WBC 5-10 /hpf (0-5) H 12/22/21 12:02 Ur Squamous Epith Cells 0-4 /hpf (0-5) H 12/22/21 12:02 Amorphous Sediment Not Reportable 12/22/21 12:02 Urine Bacteria 4+ /hpf (NONE) H 12/22/21 12:02 Vitals Last Vital Signs Temp 97.8 F 12/24/21 07:15 Pulse 77 12/24/21 07:43 Resp 16 12/24/21 07:43 BP 128/74 12/24/21 07:15 Pulse Ox 94 12/24/21 07:43 Discharge Plan Discharge Patient Disposition: Home Condition: Stable Prescriptions: New amoxicillin-pot clavulanate 875-125 mg tablet 1 tab PO Q12H Qty: 14 0RF hydrocodone-acetaminophen 5-325 mg tablet 1 tab PO Q8H PRN (Reason: pain) Qty: 10 0RF No Action garlic 100 mg Tablet 100 mg PO DAILY 0RF Cayenne Plus Garlic 200-300 mg Capsule 1 cap PO DAILY 0RF ascorbic acid (vitamin C) [Vitamin C] 250 mg Tablet 250 mg PO DAILY 0RF gemfibrozil 600 mg Tablet 600 mg PO DAILY 0RF Panax Ginseng 150 mg Capsule 150 mg PO DAILY 0RF Aspirin Extra Strength 500 mg Tablet 500 mg PO BID PRN (Reason: Pain) 0RF Rx Instructions: while awake ginkgo biloba 40 mg Tablet 40 mg PO BID 0RF Rx Instructions: give with meal/snack glucose 4 gram Tablet,Chewable 4 g PO Q15M PRN (Reason: Hypoglycemia) 0RF Rx Instructions: until symptoms of low blood sugar are controlled ginseng 250 mg Capsule 250 mg PO DAILY 0RF cholecalciferol (vitamin D3) 25 mcg (1,000 unit) Capsule 25 mcg PO DAILY 0RF metformin 1,000 mg Tablet Extended Release 24hr 500 mg PO DAILY 0RF Lantus Solostar U-100 Insulin 100 unit/mL (3 mL) Insulin Pen 10 unit SUBCUT DAILY 0RF Fish Oil 500 mg Capsule 500 mg PO BID 0RF Discharge Orders: Discharge Order (Routine); Ordered 12/24/21 Ordered By: Aspen Brown Referrals: Sky Campos DO [Physician] - 6 Weeks (for colonoscopy) Evelio Pisano DO [Primary Care Provider] - 2 weeks Discharge Diet: Advance as tolerated Discharge Activity: Increase activity as tolerated Patient Instructions: Diverticulitis (ED), Abdominal Pain (ED), Opioid Safety Activity Restrictions/Additional Instructions: Take the medications we have prescribed both for your infection as well as as needed for pain. You may eat a liquid followed by a more regular diet as you feel better. At any time should you develop fever, increasing pain, inability to tolerate medications or any concerns at any time return to this or the [facility] emergency department. Will need colonoscopy within 6 to 8 weeks, follow-up with Dr. Campos. Discharge Attestations Time Spent in Discharge Care*: less than 30 min Quality Metrics Clinical Quality Measures [ No reported AMI, CVA or VTE this stay] Coding Level of Care Code Acute Chg FW DC note Diagnoses Abdominal pain R10.9 Diverticulitis of large intestine with complication K57.32
== END 2021-12-24 14:10 | disposition home or self-care (01) ==
LOC: ER 14:05 → MEDSURG 15:19
PROVIDERS: Admitting Provider Internal Medicine; Emergency Provider Emergency Medicine; PCP Emergency Medicine Emergency Medical Services; Visit Provider Internal Medicine
DX: K57.92 Diverticulitis of intestine, part unspecified, without perforation or abscess without bleeding (principal); Z79.82 Long term (current) use of aspirin; E11.9 Type 2 diabetes mellitus without complications; Z79.84 Long term (current) use of oral hypoglycemic drugs; Z79.4 Long term (current) use of insulin
CPT/HCPCS: 36415; 36416; 74176; 80048; 80053; 81001; 82962; 83036; 83690; 83735; 84145; 85025; 86140; 87077; 87086; 87186; 96365; 96366; 96367; 96375; 99285; G0378; J0295; J1170; J2270; J2405; J2543; J7799

== ENCOUNTER → 2022-01-20 09:01 | Outpatient (BNVA) | payer OTHER, SELFPAY | PROVIDERS: PCP Emergency Medicine Emergency Medical Services; Visit Provider Surgery | DX: K57.32 Diverticulitis of large intestine without perforation or abscess without bleeding (principal) | CPT/HCPCS: 99203 ==

== ENCOUNTER → 2022-03-06 08:20 | Outpatient (BNVA) | payer OTHER, SELFPAY | PROVIDERS: PCP Emergency Medicine Emergency Medical Services; Visit Provider Nurse Practitioner Family | DX: N39.0 Urinary tract infection, site not specified (principal) | CPT/HCPCS: 51741; 51798; 99203 ==

== ENCOUNTER → 2022-03-22 16:16 | Outpatient (BNVA) | payer OTHER, SELFPAY | PROVIDERS: PCP Emergency Medicine Emergency Medical Services; Visit Provider Nurse Practitioner Family | DX: N39.0 Urinary tract infection, site not specified (principal); R33.9 Retention of urine, unspecified | CPT/HCPCS: 81003 ==

== ENCOUNTER 2022-03-29 05:59 | Day surgery (SDC) | payer OTHER, SELFPAY ==
[2022-03-27 13:28] VITALS: BMI 28.5
[2022-03-29 06:34] VITALS: BP 149/78; PULSE 63; RESP 18; TEMP 36.1; O2SAT 97
[2022-03-29] MEDS: sodium chloride 0.9% 1,000 ML 30 ML IV (06:38)
[2022-03-29 07:01] LABS: Glucose Point of Care 170 mg/dL (70-110)
--- NOTE | 2022-03-29 07:20 | P.HP_ITS ---
Providers/Chief Complaint Primary Care Provider: Evelio Pisano DO Chief Complaint: diverticulitis of large intestine w/o perforation History of Present Illness Marlon Whitehead is a 66 year old male here for colonoscopy Medications/Allergies Home Medications Medication Instructions Recorded Confirmed Last Taken Type Turkish ginseng root extract 150 mg 150 mg PO DAILY 03/08/21 03/27/22 03/27/22 History capsule ascorbic acid (vitamin C) 250 mg 250 mg PO DAILY 03/08/21 03/27/22 03/27/22 History tablet (Vitamin C) garlic 100 mg tablet 100 mg PO DAILY 03/08/21 03/27/22 03/27/22 History gemfibrozil 600 mg tablet 600 mg PO DAILY 03/08/21 03/27/22 03/27/22 History aspirin 500 mg tablet 500 mg PO BID PRN Pain 12/22/21 03/27/22 03/27/22 History cholecalciferol (vitamin D3) 25 25 mcg PO DAILY 12/22/21 03/27/22 03/27/22 History mcg (1,000 unit) capsule ginkgo biloba 40 mg tablet 40 mg PO BID 12/22/21 03/27/22 03/27/22 History ginseng 250 mg capsule 250 mg PO DAILY 12/22/21 03/27/22 12/21/21 History glucose 4 gram chewable tablet 4 g PO Q15M PRN Hypoglycemia 12/22/21 03/27/22 Unknown History insulin glargine 100 unit/mL (3 10 unit SUBCUT DAILY 12/22/21 03/29/22 03/28/22 21:30 History mL) subcutaneous pen (Lantus Solostar U-100 Insulin) metformin 1,000 mg tablet,extended 500 mg PO DAILY 12/22/21 03/27/22 03/27/22 History release 24hr omega-3 fatty acids 500 mg capsule 500 mg PO BID 12/22/21 03/27/22 03/27/22 History fiber as directed 01/20/22 03/06/22 03/27/22 History capsicum (cayenne) 450 mg capsule 450 mg PO DAILY 03/06/22 03/27/22 03/27/22 History cinnamon bark 500 mg capsule 500 mg PO DAILY 03/06/22 03/27/22 03/27/22 History (Cinnamon) magnesium oxide 250 mg PO DAILY 03/06/22 03/27/22 03/27/22 History saw palmetto 450 mg capsule 450 mg PO DAILY daily 03/06/22 03/27/22 03/27/22 History acetaminophen 325 mg tablet 1,000 mg PO DAILY PRN Pain 03/29/22 03/29/22 03/27/22 History (Tylenol) glipizide 2.5 mg tablet, extended 2.5 mg PO DAILY 03/29/22 03/29/22 03/27/22 History release 24 hr Allergies Allergy/AdvReac Type Severity Reaction Status Date / Time No Known Allergies Allergy Verified 03/06/22 08:32 PFSH Acute PFSH: Medical History Abdominal pain Diabetes Diverticulitis Diverticulitis of large intestine with complication Recurrent UTI Trauma Surgical History History of colostomy History of colostomy reversal Hx of colonoscopy At [place] Family History Father , at age 72 CAD (coronary artery disease) Mother , at age 93 Dementia Social History Smoking and tobacco status: former smoker Alcohol intake: current Alcohol intake frequency: holidays/special occasions only Household members: spouse Marital status: Current occupational status: retired History of recent travel: No Vitals/I&O/Wt Last Vital Signs Temp 97 F L 03/29/22 06:34 Pulse 63 03/29/22 06:34 Resp 18 03/29/22 06:34 BP 149/78 03/29/22 06:34 Pulse Ox 97 03/29/22 06:34 O2 Del Method 03/29/22 06:34 Weight last 48 hrs Weight 182 lb A&P Assessment and plan (1) Diverticulitis of large intestine with complication: Plan Colonoscopy Attestations Medical Necessity Statement*: Home Coding Level of Care Code 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
--- NOTE | 2022-03-29 07:47 | ANES.PREANE2 ---
Pre-Anesthetic Assessment Height/Weight: Height 1.7 m Weight 82.554 kg Temp Pulse Resp BP Pulse Ox O2 Del Method 97 F L 63 18 149/78 97 03/29/22 06:34 03/29/22 06:34 03/29/22 06:34 03/29/22 06:34 03/29/22 06:34 03/29/22 06:34 Preop Diagnosis: Hx bowel resection Operation Date: 03/29/22 08:00 Proposed Procedures p Colonoscopy 41246,K57.32(Not Applicable) - Sky Campos, DO Was Beta Hayes taken within 24 hours: N/A Last intake: Intake Last Liquid Date 03/28/22 Last Liquid Time 16:00 Last Solid Date 03/27/22 Last Solid Time 17:00 Social Alcohol and No tobacco Exam alert, oriented x 3, clear to auscultation bilaterally and regular rate & rhythm Airway Submandibular: within normal limits Cervical ROM: within normal limits Comments: Comments: Several missing teeth. nothing loose History/ROS No significant history except as noted and No significant complaints Pulmonary None reported CV/HEM None reported None reported Hepatic None reported GI None reported Metabolic Diabetes Mellitus Musc/skel None reported Neuropsych None reported Anesthetic Plan ASA status: 3 Anesthesia: Anesthesia Evaluation and MAC Risk of > 500 ml blood loss (7ml/kg in children): No Medications/Allergies Home Medications Medication Instructions Recorded Confirmed Last Taken Type French ginseng root extract 150 mg 150 mg PO DAILY 03/08/21 03/27/22 03/27/22 History capsule ascorbic acid (vitamin C) 250 mg 250 mg PO DAILY 03/08/21 03/27/22 03/27/22 History tablet (Vitamin C) garlic 100 mg tablet 100 mg PO DAILY 03/08/21 03/27/22 03/27/22 History gemfibrozil 600 mg tablet 600 mg PO DAILY 03/08/21 03/27/22 03/27/22 History aspirin 500 mg tablet 500 mg PO BID PRN Pain 12/22/21 03/27/22 03/27/22 History cholecalciferol (vitamin D3) 25 25 mcg PO DAILY 12/22/21 03/27/22 03/27/22 History mcg (1,000 unit) capsule ginkgo biloba 40 mg tablet 40 mg PO BID 12/22/21 03/27/22 03/27/22 History ginseng 250 mg capsule 250 mg PO DAILY 12/22/21 03/27/22 12/21/21 History glucose 4 gram chewable tablet 4 g PO Q15M PRN Hypoglycemia 12/22/21 03/27/22 Unknown History insulin glargine 100 unit/mL (3 10 unit SUBCUT DAILY 12/22/21 03/29/22 03/28/22 21:30 History mL) subcutaneous pen (Lantus Solostar U-100 Insulin) metformin 1,000 mg tablet,extended 500 mg PO DAILY 12/22/21 03/27/22 03/27/22 History release 24hr omega-3 fatty acids 500 mg capsule 500 mg PO BID 12/22/21 03/27/22 03/27/22 History fiber as directed 01/20/22 03/06/22 03/27/22 History capsicum (cayenne) 450 mg capsule 450 mg PO DAILY 03/06/22 03/27/22 03/27/22 History cinnamon bark 500 mg capsule 500 mg PO DAILY 03/06/22 03/27/22 03/27/22 History (Cinnamon) magnesium oxide 250 mg PO DAILY 03/06/22 03/27/22 03/27/22 History saw palmetto 450 mg capsule 450 mg PO DAILY daily 03/06/22 03/27/22 03/27/22 History acetaminophen 325 mg tablet 1,000 mg PO DAILY PRN Pain 03/29/22 03/29/22 03/27/22 History (Tylenol) glipizide 2.5 mg tablet, extended 2.5 mg PO DAILY 03/29/22 03/29/22 03/27/22 History release 24 hr Allergies Allergy/AdvReac Type Severity Reaction Status Date / Time No Known Allergies Allergy Verified 03/06/22 08:32 Current Medications Generic Name Dose Route Start Last Admin Trade Name Freq PRN Reason Stop Dose Admin Sodium Chloride 1,000 mls @ 30 mls/hr 03/29/22 06:15 03/29/22 06:38 Sodium Chloride 0.9% IV 03/30/22 06:14 30 mls/hr .Q24H NATHALIE Administration PFSH Anesthesia Medical History Abdominal pain Diabetes Diverticulitis Diverticulitis of large intestine with complication Recurrent UTI Trauma Surgical History History of colostomy History of colostomy reversal Hx of colonoscopy At [place] Family History Father , at age 72 CAD (coronary artery disease) Mother , at age 93 Dementia Social History Smoking and tobacco status: former smoker Alcohol intake: current Alcohol intake frequency: holidays/special occasions only Household members: spouse Marital status: Current occupational status: retired History of recent travel: No Data Anesthesia Cardiac Studies: No Data to Display
[2022-03-29 08:22] VITALS: BP 139/104; PULSE 74; RESP 16; TEMP 36.1; O2SAT 99
[2022-03-29 08:40] VITALS: BP 153/86; PULSE 65; RESP 18; O2SAT 96
--- NOTE | 2022-03-29 10:06 | ANE.PACU2 ---
Inpatient post-anesthesia follow up: Airway intact: Yes Vital signs: Temperature 97 F Pulse Rate 65 Respiratory Rate 18 Blood Pressure 153/86 Pulse Oximetry 96 Oxygen Delivery Me thod Room Air Oxygen Flow Rate 3 Fraction of Inspir ed Oxygen Hydration adequate: Yes Nausea and vomiting: No Pain level: 1 Mental status: Baseline
== END 2022-03-29 09:04 | disposition home or self-care (01) ==
PROVIDERS: PCP Emergency Medicine Emergency Medical Services; Visit Provider Surgery
PROC: 0DJD8ZZ Inspection of Lower Intestinal Tract, Via Natural or Artificial Opening Endoscopic (ICD-10-PCS; CPT 45378; principal; 2022-03-29 08:00)
DX: K57.32 Diverticulitis of large intestine without perforation or abscess without bleeding (principal); K57.30 Diverticulosis of large intestine without perforation or abscess without bleeding; D12.5 Benign neoplasm of sigmoid colon; E11.9 Type 2 diabetes mellitus without complications; Z79.4 Long term (current) use of insulin; Z79.84 Long term (current) use of oral hypoglycemic drugs; Z87.891 Personal history of nicotine dependence
CPT/HCPCS: 36416; 45385; 82962; 88305; J2704; J7030

== ENCOUNTER → 2022-04-11 10:01 | Outpatient (BNVA) | payer OTHER, SELFPAY | PROVIDERS: PCP Emergency Medicine Emergency Medical Services; Visit Provider Surgery | DX: Z09 Encounter for follow-up examination after completed treatment for conditions other than malignant neoplasm (principal); K57.90 Diverticulosis of intestine, part unspecified, without perforation or abscess without bleeding; D12.6 Benign neoplasm of colon, unspecified | CPT/HCPCS: 99212 ==

== ENCOUNTER → 2022-06-27 10:12 | Outpatient (BNVA) | payer OTHER, SELFPAY | PROVIDERS: PCP Emergency Medicine Emergency Medical Services; Visit Provider Urology | DX: N40.1 Benign prostatic hyperplasia with lower urinary tract symptoms (principal); N39.0 Urinary tract infection, site not specified | CPT/HCPCS: 51798; 81003; 99213 ==

== ENCOUNTER 2022-10-19 12:24 | Emergency (ER) | payer OTHER, SELFPAY ==
[2022-10-19 12:37] VITALS: BP 134/72; PULSE 81; RESP 16; TEMP 36.2; O2SAT 99; BMI 29.7
--- NOTE | 2022-10-19 14:20 | ED_ITS ---
HPI - Abdominal Pain General: Chief Complaint: Abdominal Pain Stated Complaint: abd pain Time Seen by Provider: 10/19/22 14:12 Source: patient Mode of arrival: ambulatory Limitations: no limitations History of Present Illness: Patient is a nice 66-year-old male presents to ED today with a complaint of left lower abdominal pain that he initially noticed 2 days ago. He states pain initially was mild and intermittent but has progressively gotten more severe and constant in nature. He states he is not having any pain or problems with defecation. Denies bloody stools. Denies urinary complaints. Denies nausea or vomiting. He states he does have a history of diverticulitis with abscess and feels like his symptoms are similar in nature. He is not running fevers. MD elicited complaint: abdominal pain Pertinent past history: diverticulitis Onset (ago): day(s) Pain Consistency: constant Location: LLQ Severity: moderate Quality: sharp Radiation: none Migration to: no migration Exacerbating factors: nothing Relieving factors: nothing Associated Symptoms: Reports no associated symptoms; Denies change in bowel habits, chills, dysuria, fever(s), hematochezia, hematuria, melena, nausea and vomiting Review of Systems Const: Denies: fever(s), chills, body aches, fatigue or malaise Card: Denies: chest pain Resp: Denies: dyspnea GI: Reports: abdominal pain; Denies: nausea, vomiting, change in bowel habits, rectal pain, hematochezia or melena : Denies: flank pain, difficulty urinating, dysuria, urinary frequency, urinary urgency or hematuria Musc: Denies: neck pain, back pain, extremity pain or joint pain Skin/Breast: Denies: rash Neuro: Denies: headache(s) or dizziness [facility] ED PFSH: Medical History Abdominal pain Diabetes Diverticulitis Diverticulitis of large intestine with complication Diverticulosis Recurrent UTI Trauma Tubular adenoma of colon UTI (urinary tract infection) Surgical History History of colostomy History of colostomy reversal Hx of colonoscopy At [place] Family History Father , at age 72 CAD (coronary artery disease) Mother , at age 93 Dementia Social History Smoking and tobacco status: former smoker Alcohol intake: current Alcohol intake frequency: 0-2 Drinks per Day Household members: spouse Marital status: Current occupational status: retired Physical Exam Const: COMMON NORMALS: no acute distress, average body habitus, patient oriented x3, no limitations, healthy appearing, alert and well nourished ORIENTATION/CONSCIOUSNESS: Yes awake, Yes oriented to person, Yes oriented to place and Yes oriented to time HENMT: COMMON NORMALS: normocephalic and atraumatic HEAD & SCALP: normal to inspection, normocephalic and atraumatic Resp: COMMON NORMALS: normal respiratory effort and clear to auscultation bilaterally AUSCULTATION: clear to auscultation bilaterally Cardio: COMMON NORMALS: regular rate and regular rhythm RATE: regular rate RHYTHM: regular rhythm GI: COMMON NORMALS: Normal to inspection, nondistended, normoactive bowel sounds present, Soft to palpation, No hepatosplenomegaly present and no masses INSPECTION: Yes normal to inspection AUSCULTATION: Yes normoactive bowel sounds PALPATION: Yes Soft to palpation, Yes Tenderness to palpation present (GI) (LLQ), No Guarding due to palpation present (GI), No Rigid due to palpation and Yes No hepatosplenomegaly present : COMMON NORMALS: Yes no CVA tenderness BLADDER/KIDNEY EXAM: Yes no CVA tenderness Back/Pelvis: COMMON NORMALS: no CVA tenderness Neuro: COMMON NORMALS: patient oriented x3 SENSORIUM/ORIENTATION: Yes aler t, Yes oriented to person, Yes oriented to place and Yes oriented to time Course Vital Signs: Vital signs: Vital Signs Temperature 97.1 F L 10/19/22 12:37 Pulse Rate 81 10/19/22 12:37 Respiratory Rate 16 10/19/22 12:37 Blood Pressure 134/72 10/19/22 12:37 Pulse Oximetry 99 10/19/22 12:37 MDM - Abdominal Pain Medical Decision Making Patient's vital signs are stable. Blood work shows a white count of 12.1 but is otherwise fairly unremarkable. UA is clear. CT scan showing acute diverticulitis without abscess or perforation. Patient will be placed on Cipro and Flagyl and given something for pain. Strict return to ED precautions given. I would like him to follow-up with his primary care provider next week. Lab Data 10/19/22 14:05 10/19/22 14:05 Labs/Radiology: Radiology Impressions Abdomen/Pelvis CT 10/19/22 14:27 IMPRESSION: 1. Findings compatible with acute diverticulitis as described above. 2. No evidence of drainable abscess or fluid collection. 3. Hepatomegaly with diffuse infiltration the liver. 4. No hydronephrosis in either kidney. 5. Mild prostate enlargement measuring 3.8 cm. Laboratory Results WBC 12.1 10^3/uL (4.0-10.0) H 10/19/22 14:05 RBC 4.62 10^6/uL (4.1-5.3) 10/19/22 14:05 Hgb 14.4 g/dL (11.7-16.6) 10/19/22 14:05 Hct 43.4 % (42.0-52.0) 10/19/22 14:05 MCV 93.9 fl (80-94) 10/19/22 14:05 MCH 31.2 pg (28.0-34.0) 10/19/22 14:05 MCHC 33.2 g/dL (30.0-36.0) 10/19/22 14:05 RDW 13.1 % (12.1-15.1) 10/19/22 14:05 Plt Count 189 10^3/cmm (130-400) 10/19/22 14:05 MPV 10.3 fL (7.4-10.4) 10/19/22 14:05 Neut % (Auto) 61.9 % 10/19/22 14:05 Lymph % (Auto) 27.0 % 10/19/22 14:05 [place] % (Auto) 9.9 % 10/19/22 14:05 Eos % (Auto) 0.8 % 10/19/22 14:05 Baso % (Auto) 0.2 % 10/19/22 14:05 Neut # (Auto) 7.49 10^3/uL (1.8-7.7) 10/19/22 14:05 Lymph # (Auto) 3.3 10^3/uL (0.8-4.8) 10/19/22 14:05 [place] # (Auto) 1.2 10^3/uL (0.2-0.9) H 10/19/22 14:05 Eos # (Auto) 0.1 10^3/uL (0.0-0.8) 10/19/22 14:05 Baso # (Auto) 0.0 10^3/uL (0.0-0.1) 10/19/22 14:05 Nucleated RBC % (auto) 0 % 10/19/22 14:05 Nucleated RBCs # 0.0 /100WBC 10/19/22 14:05 Sodium 130 mmol/L (136-145) L 10/19/22 14:05 Potassium 4.5 mmol/L (3.5-5.1) 10/19/22 14:05 Chloride 95 mmol/L (98-107) L 10/19/22 14:05 Carbon Dioxide 25 mmol/L (22-29) 10/19/22 14:05 Anion Gap 14.5 (5-19) 10/19/22 14:05 BUN 18 mg/dL (8-23) 10/19/22 14:05 Creatinine 0.8 mg/dL (0.7-1.2) 10/19/22 14:05 GFR Calculation 96.1 mL/min (90-130) 10/19/22 14:05 Glucose 163 mg/dL (65-115) H 10/19/22 14:05 Calculated Osmolality 275 mOsm/kg (285-295) L 10/19/22 14:05 Calcium 9.3 mg/dL (8.5-10.5) 10/19/22 14:05 Total Bilirubin 1.0 mg/dL (0.15-1.2) 10/19/22 14:05 AST 25 U/L (0-40) 10/19/22 14:05 ALT 43 U/L (0-41) H 10/19/22 14:05 Alkaline Phosphatase 87 U/L (40-130) 10/19/22 14:05 Total Protein 7.9 g/dL (6.6-8.7) 10/19/22 14:05 Albumin 4.5 g/dL (3.5-5.2) 10/19/22 14:05 Globulin 3.4 g/dL (1.3-4.6) 10/19/22 14:05 Lipase 46 U/L (13-60) 10/19/22 14:05 Urine Color Yellow (Yellow) 10/19/22 14:48 Urine Appearance Clear (CLEAR) 10/19/22 14:48 Urine pH 7 (5-7) 10/19/22 14:48 Ur Specific [place] 1.015 (1.005-1.030) 10/19/22 14:48 Urine Protein Neg (Negative) 10/19/22 14:48 Urine Glucose (UA) Norm (Normal) 10/19/22 14:48 Urine Ketones Negative (Negative) 10/19/22 14:48 Urine Blood Neg (Negative) 10/19/22 14:48 Urine Nitrate Negative (Negative) 10/19/22 14:48 Urine Bilirubin Neg (Negative) 10/19/22 14:48 Urine Urobilinogen Neg mg/dL (Negative) 10/19/22 14:48 Ur Leukocyte Esterase Negative (Negative) 10/19/22 14:48 Discharge Plan Discharge Patient Disposition: Home Clinical Impression: Diverticulitis Condition: Stable Prescriptions: New hydrocodone-acetaminophen 5-325 mg tablet 1 tab PO Q6H PRN (Reason: pain) Qty: 14 0RF metronidazole 500 mg tablet 500 mg PO BID 7 Days Qty: 14 0RF Cipro 500 mg tablet 500 mg PO Q12H Qty: 14 0RF No Action fiber as directed capsicum (cayenne) 450 mg capsule 450 mg PO DAILY magnesium oxide 250 mg magnesium tablet 250 mg PO DAILY cinnamon bark [Cinnamon] 500 mg capsule 500 mg PO DAILY saw palmetto 450 mg capsule 450 mg PO DAILY Rx Instructions: give with food (meal/snack) tamsulosin 0.4 mg capsule 0.4 mg PO DAILY Qty: 90 3RF garlic 100 mg Tablet 100 mg PO DAILY ascorbic acid (vitamin C) [Vitamin C] 250 mg Tablet 250 mg PO DAILY gemfibrozil 600 mg Tablet 600 mg PO DAILY Kyrgyz ginseng root extract 150 mg Capsule 150 mg PO DAILY aspirin 500 mg Tablet 500 mg PO BID PRN (Reason: Pain) Hold Instructions: Resume on 03/31/22. Rx Instructions: while awake ginkgo biloba 40 mg Tablet 40 mg PO BID Rx Instructions: give with meal/snack glucose 4 gram Tablet,Chewable 4 g PO Q15M PRN (Reason: Hypoglycemia) Rx Instructions: until symptoms of low blood sugar are controlled ginseng 250 mg Capsule 250 mg PO DAILY cholecalciferol (vitamin D3) 25 mcg (1,000 unit) Capsule 25 mcg PO DAILY metformin 1,000 mg Tablet Extended Release 24hr 500 mg PO DAILY insulin glargine [Lantus Solostar U-100 Insulin] 100 unit/mL (3 mL) Insulin Pen 10 unit SUBCUT DAILY omega-3 fatty acids 500 mg Capsule 500 mg PO BID Tylenol 325 mg Tablet 1,000 mg PO DAILY PRN (Reason: Pain) glipizide 2.5 mg Tablet Extended Release 24hr 2.5 mg PO DAILY Discharge Orders: Discharge ED (Routine); Ordered 10/19/22 Ordered By: Adeola Bartlett Referrals: Evelio Pisano, [Primary Care Provider] - Patient Instructions: Diverticulitis (DC), Opioid Safety, Pain Management Activity Restrictions/Additional Instructions: Fill antibiotics and start them immediately. As we discussed please return to the emergency department for worsening or not improving abdominal pain, inability to hold down your medications, fevers, generally feeling worse or unwell, or any other concerns you may have. I hope you begin to feel better soon. 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
[2022-10-19 14:23] LABS: Basophils % 0.2 %; Eosinophils # 0.1 10^3/uL (0.0-0.8); Eosinophils % 0.8 %; Hematocrit 43.4 % (42.0-52.0); Hemoglobin 14.4 g/dL (11.7-16.6); Lymphocytes # 3.3 10^3/uL (0.8-4.8); Mean Corpuscular HGB Conc 33.2 g/dL (30.0-36.0); Mean Corpuscular Hemoglobin 31.2 pg (28.0-34.0); Mean Corpuscular Volume 93.9 fl (80-94); Mean Platelet Volume 10.3 fL (7.4-10.4); Monocytes # 1.2 10^3/uL (0.2-0.9); Monocytes % 9.9 %; Neutrophils # 7.49 10^3/uL (1.8-7.7); Neutrophils % 61.9 %; Nucleated Red Blood Cells % 0 %; Platelet Count 189 10^3/cmm (130-400); Red Blood Count 4.62 10^6/uL (4.1-5.3); Red Cell Distribution Width 13.1 % (12.1-15.1); White Blood Count 12.1 10^3/uL (4.0-10.0)
--- NOTE | 2022-10-19 14:27 | CT_ITS ---
WS: [id number] CT ABDOMEN PELVIS TECHNIQUE: Contrast-enhanced CT of the abdomen and pelvis with coronal and sagittal reformatted image s. CLINICAL INFORMATION: LLQ abdominal pain COMPARISON: CT December 22, 2021 DLP: 794.[address] scans at [facility] use at least one of these dose optimization techniques: automated e xposure control; mA and/or kV adjustment per patient size (includes targeted exams where dose is matc hed to clinical indication); or iterative reconstruction. FINDINGS: Diffuse thickening and inflammatory stranding with edema involving the sigmoid colon LEFT lower quadr ant compatible with acute diverticulitis. No evidence of drainable fluid collection or abscess. Surro unding inflammatory changes. Small well-circumscribed low-attenuation collection in the RIGHT lower quadrant anteriorly measuring 2.2 x 1.6 cm is unchanged since December 22, 2021. Lung bases are well aerated. Diffuse fatty infiltratio n liver. Hepatomegaly. Normal spleen. Normal GE junction. Normal portal vein and splenic vein. Adrena l glands are normal. Normal renal parenchymal enhancement. Bilateral renal cysts. No hydronephrosis. Normal gallbladder. Adrenal glands are normal. Normal caliber abdominal aorta. Small fat-containing umbilical hernia. CT/CT abdomen pelvis w con* [id number] IMPRESSION: 1. Findings compatible with acute diverticulitis as described above. 2. No evidence of drainable abscess or fluid collection. 3. Hepatomegaly with diffuse infiltration the liver. 4. No hydronephrosis in either kidney. 5. Mild prostate enlargement measuring 3.8 cm.
[2022-10-19 14:42] LABS: Alanine Aminotransferase 43 U/L (0-41); Albumin Level 4.5 g/dL (3.5-5.2); Alkaline Phosphatase 87 U/L (40-130); Anion Gap 14.5 (5-19); Aspartate Amino Transferase 25 U/L (0-40); Blood Urea Nitrogen 18 mg/dL (8-23); Calcium 9.3 mg/dL (8.5-10.5); Carbon Dioxide 25 mmol/L (22-29); Chloride 95 mmol/L (98-107); Globulin 3.4 g/dL (1.3-4.6); Glomerular Filtration Rate 96.1 mL/min (90-130); Glucose 163 mg/dL (65-115); Lipase 46 U/L (13-60); Osmolality Calculated 275 mOsm/kg (285-295); Potassium 4.5 mmol/L (3.5-5.1); Sodium 130 mmol/L (136-145); Total Protein 7.9 g/dL (6.6-8.7)
[2022-10-19] MEDS: ondansetron 2 mg/ML SDV 2 mL 4 MG IVP (14:57)
[2022-10-19 15:08] LABS: Add Urine Microscopic? NO; Charge for UA Resulting for Rev
[2022-10-19 15:30] LABS: Bilirubin Urine Neg (Negative); Blood Urine Neg (Negative); Glucose Urine UA Norm (Normal); Ketones Urine Negative (Negative); Leukocyte Esterase Urine Negative (Negative); Nitrate Urine Negative (Negative); Protein Urine Neg (Negative); Specific Gravity, Urine 1.015 (1.005-1.030); Urine Appearance Clear (CLEAR); Urine Color Yellow (Yellow); Urobilinogen Urine Neg (Negative); pH Urine 7 (5-7)
== END 2022-10-19 15:56 | disposition home or self-care (01) ==
PROVIDERS: Emergency Provider Physician Assistant; PCP Emergency Medicine Emergency Medical Services
DX: K57.92 Diverticulitis of intestine, part unspecified, without perforation or abscess without bleeding (principal); R10.32 Left lower quadrant pain
CPT/HCPCS: 74177; 80053; 81003; 83690; 85025; 96374; 99285; J2405; Q9967

== ENCOUNTER 2024-02-25 16:17 | Emergency (ER) | payer OTHER, SELFPAY ==
[2024-02-25 16:21] VITALS: BP 108/66; PULSE 89; RESP 16; TEMP 38.5; O2SAT 93
--- NOTE | 2024-02-25 17:27 | ED_ITS ---
Documented by User: Dylan Langston DO 02/26/24 05:52 HPI - Male Genitourinary 2 General: Chief complaint: Urogenital-Male Stated complaint: body pain/ urinary issues Time Seen by Provider: 02/25/24 17:14 History of Present Illness: 68-year-old male presents emergency room with urologic difficulties having difficult time voiding pain and dysuria began last night he is also had fever overnight. Reports a temp up to 102 yesterday. He does feel like he has been able to void and empty his bladder completely has had increasing urination generalized aches all over no specific flank pain has not noticed any hematuria no vomiting or diarrhea. Patient is diabetic. Associated symptoms: Deny dysuria Related Data Home Medications Medication Instructions Recorded Confirmed Turkish ginseng root extract 150 mg 150 mg PO DAILY 03/08/21 06/27/22 capsule ascorbic acid (vitamin C) 250 mg 250 mg PO DAILY 03/08/21 06/27/22 tablet (Vitamin C) garlic 100 mg tablet 100 mg PO DAILY 03/08/21 06/27/22 gemfibrozil 600 mg tablet 600 mg PO DAILY 03/08/21 06/27/22 aspirin 500 mg tablet 500 mg PO BID PRN Pain 12/22/21 06/27/22 cholecalciferol (vitamin D3) 25 25 mcg PO DAILY 12/22/21 06/27/22 mcg (1,000 unit) capsule ginkgo biloba 40 mg tablet 40 mg PO BID 12/22/21 06/27/22 ginseng 250 mg capsule 250 mg PO DAILY 12/22/21 06/27/22 glucose 4 gram chewable tablet 4 g PO Q15M PRN Hypoglycemia 12/22/21 06/27/22 insulin glargine 100 unit/mL (3 10 unit SUBCUT DAILY 12/22/21 06/27/22 mL) subcutaneous pen (Lantus Solostar U-100 Insulin) metformin 1,000 mg tablet,extended 500 mg PO DAILY 12/22/21 06/27/22 release 24hr (osmotic) omega-3 fatty acids 500 mg capsule 500 mg PO BID 12/22/21 06/27/22 fiber as directed 01/20/22 06/27/22 capsicum (cayenne) 450 mg capsule 450 mg PO DAILY 03/06/22 06/27/22 cinnamon bark 500 mg capsule 500 mg PO DAILY 03/06/22 06/27/22 (Cinnamon) magnesium oxide 250 mg PO DAILY 03/06/22 06/27/22 saw palmetto 450 mg capsule 450 mg PO DAILY daily 03/06/22 06/27/22 acetaminophen 325 mg tablet 1,000 mg PO DAILY PRN Pain 03/29/22 06/27/22 (Tylenol) glipizide 2.5 mg tablet, extended 2.5 mg PO DAILY 03/29/22 06/27/22 release 24 hr Previous Rx's Medication Instructions Recorded tamsulosin 0.4 mg capsule 0.4 mg PO DAILY #90 caps 06/27/22 ciprofloxacin HCl 500 mg tablet 500 mg PO Q12H #14 tabs 10/19/22 (Cipro) hydrocodone 5 mg-acetaminophen 325 1 tab PO Q6H PRN pain #14 tabs 10/19/22 mg tablet ciprofloxacin HCl 500 mg tablet 500 mg PO Q12H #20 tabs 02/25/24 Allergies Allergy/AdvReac Type Severity Reaction Status Date / Time No Known Allergies Allergy Verified 02/25/24 16:25 Review of Systems 2 Const: Denies: fever(s) or chills Card: Denies: chest pain Resp: Denies: dyspnea GI: Denies: abdominal pain : Denies: dysuria, urinary frequency or urinary urgency Musc: Denies: neck pain or back pain Skin/Breast: Denies: rash PFSH ED 2 PFSH: Medical History Tubular adenoma of colon Diverticulosis UTI (urinary tract infection) Recurrent UTI Trauma Diabetes Diverticulitis of large intestine with complication Abdominal pain Diverticulitis Surgical History Hx of colonoscopy At [place] History of colostomy reversal History of colostomy Family History Father , at age 72 CAD (coronary artery disease) Mother , at age 93 Dementia Social History Smoking and tobacco/nicotine status: former use of tobacco/nicotine Alcohol intake: current Alcohol intake frequency: 0-2 Drinks per Day Household members: spouse Marital status: Current occupational status: retired Physical Exam 2 Const: COMMON NORMALS: no acute distress GENERAL APPEARANCE: cooperative and comfortable ORIENTATION/CONSCIOUSNESS: Yes awake, Yes oriented to person, Yes oriented to place and Yes oriented to time HENMT: COMMON NORMALS: normocephalic, atraumatic and hearing grossly normal bilaterally HEAD & SCALP: normocephalic and atraumatic Resp: COMMON NORMALS: normal respiratory effort, No retractions, No use of accessory muscles and clear to auscultation bilaterally AUSCULTATION: clear to auscultation bilaterally Cardio: COMMON NORMALS: regular rate, regular rhythm and No murmurs present (Cardio) RATE: regular rate RHYTHM: regular rhythm GI: COMMON NORMALS: Soft to palpation and No hepatosplenomegaly present A USCULTATION: Yes normoactive bowel sounds PALPATION: Yes Soft to palpation, No Tenderness to palpation present (GI), No Guarding due to palpation present (GI) and Yes No hepatosplenomegaly present Extremity: COMMON NORMALS: normal to inspection, capillary refill normal, no clubbing, cyanosis or edema, no calf tenderness and no pedal edema Neuro: SENSORIUM/ORIENTATION: Yes oriented to person, Yes oriented to place and Yes oriented to time Skin: COMMON NORMALS: no rashes or lesions noted GENERAL SKIN EXAM: no rashes or lesions noted Course 2 Vital Signs: Vital signs: Vital Signs Temperature 101.3 F H 02/25/24 16:21 Pulse Rate 82 02/25/24 19:33 Respiratory Rate 16 02/25/24 19:33 Blood Pressure 103/66 02/25/24 19:33 Pulse Oximetry 94 02/25/24 19:33 Oxygen Delivery Me thod Room Air 02/25/24 18:55 MDM - Male Medical Decision Making Care signed out to Dr. Ramey at change of shift. See final notes for diagnosis and disposition. Medical Records I reviewed the patient's medical records. Lab Data I reviewed the patient's lab results. 02/25/24 17:40 02/25/24 17:40 Laboratory Results WBC 13.42 10^3/uL (3.29-11.43) H 02/25/24 17:40 RBC 4.47 10^6/uL (3.85-5.65) 02/25/24 17:40 Hgb 13.90 g/dL (11.27-16.99) 02/25/24 17:40 Hct 41.1 % (37-53) 02/25/24 17:40 MCV 91.9 fl (82-101) 02/25/24 17:40 MCH 31.1 pg (27-33) 02/25/24 17:40 MCHC 33.8 g/dL (30-55) 02/25/24 17:40 RDW 13.1 % (12.1-15.1) 02/25/24 17:40 Plt Count 181 10^3/cmm (157-399) 02/25/24 17:40 MPV 9.8 fL (7.4-10.4) 02/25/24 17:40 Neut % (Auto) 79.1 % 02/25/24 17:40 Lymph % (Auto) 12.0 % 02/25/24 17:40 Calloway % (Auto) 8.2 % 02/25/24 17:40 Eos % (Auto) 0.1 % 02/25/24 17:40 Baso % (Auto) 0.2 % 02/25/24 17:40 Neut # (Auto) 10.62 10^3/uL (1.8-7.7) H 02/25/24 17:40 Lymph # (Auto) 1.6 10^3/uL (0.8-4.8) 02/25/24 17:40 Calloway # (Auto) 1.1 10^3/uL (0.2-0.9) H 02/25/24 17:40 Eos # (Auto) 0.0 10^3/uL (0.0-0.8) 02/25/24 17:40 Baso # (Auto) 0.0 10^3/uL (0.0-0.1) 02/25/24 17:40 Nucleated RBC % (auto) 0 % 02/25/24 17:40 Nucleated RBCs # 0.0 /100WBC 02/25/24 17:40 Sodium 133 mmol/L (136-145) L 02/25/24 17:40 Potassium 4.3 mmol/L (3.5-5.1) 02/25/24 17:40 Chloride 97 mmol/L (98-107) L 02/25/24 17:40 Carbon Dioxide 25 mmol/L (22-29) 02/25/24 17:40 Anion Gap 15.3 (5-19) 02/25/24 17:40 BUN 13 mg/dL (8-23) 02/25/24 17:40 Creatinine 0.8 mg/dL (0.7-1.2) 02/25/24 17:40 GFR Calculation 95.6 mL/min (90-130) 02/25/24 17:40 Glucose 153 mg/dL (65-115) H 02/25/24 17:40 POC Glucose 140 mg/dL (70-110) H 02/25/24 17:44 Calculated Osmolality 279 mOsm/kg (285-295) L 02/25/24 17:40 Lactic Acid 1.5 mmol/L (0.5-2.2) 02/25/24 17:40 Calcium 9.2 mg/dL (8.5-10.5) 02/25/24 17:40 Total Bilirubin 1.5 mg/dL (0.15-1.2) H 02/25/24 17:40 AST 45 U/L (0-40) H 02/25/24 17:40 ALT 46 U/L (0-41) H 02/25/24 17:40 Alkaline Phosphatase 118 U/L (40-130) 02/25/24 17:40 Total Protein 7.9 g/dL (6.6-8.7) 02/25/24 17:40 Albumin 4.4 g/dL (3.5-5.2) 02/25/24 17:40 Globulin 3.5 g/dL (1.3-4.6) 02/25/24 17:40 Urine Color Yellow (Yellow) 02/25/24 17:32 Urine Appearance Clear (CLEAR) 02/25/24 17:32 Urine pH 8.0 (5-7) A 02/25/24 17:32 Ur Specific [place] 1.016 (1.005-1.030) 02/25/24 17:32 Urine Protein Negative (Negative) 02/25/24 17:32 Urine Glucose (UA) Negative (Normal) 02/25/24 17:32 Urine Ketones Negative (Negative) 02/25/24 17:32 Urine Blood Non-haemolysed trace (Negative) 02/25/24 17:32 Urine Nitrate Positive (Negative) A 02/25/24 17:32 Urine Bilirubin Negative (Negative) 02/25/24 17:32 Urine Urobilinogen 1.0 mg/dL (Negative) 02/25/24 17:32 Ur Leukocyte Esterase 2+ (Negative) A 02/25/24 17:32 Urine RBC 0-4 /hpf (0-2) H 02/25/24 17:32 Urine WBC 25-40 /hpf (0-5) H 02/25/24 17:32 Amorphous Sediment Not Reportable 02/25/24 17:32 Urine Bacteria 3+ /hpf (NONE) H 02/25/24 17:32 Discharge Plan Discharge Patient Disposition: Home Clinical Impression: Urinary tract infection Qualifiers: Urinary tract infection type: acute cystitis Hematuria presence: without hematuria Qualified Code(s): N30.00 - Acute cystitis without hematuria Fever Qualifiers: Fever type: unspecified Qualified Code(s): R50.9 - Fever, unspecified Condition: Stable Prescriptions: New ciprofloxacin HCl 500 mg tablet 500 mg PO Q12H Qty: 20 0RF No Action fiber as directed capsicum (cayenne) 450 mg capsule 450 mg PO DAILY magnesium oxide 250 mg magnesium tablet 250 mg PO DAILY cinnamon bark [Cinnamon] 500 mg capsule 500 mg PO DAILY saw palmetto 450 mg capsule 450 mg PO DAILY Rx Instructions: give with food (meal/snack) tamsulosin 0.4 mg capsule 0.4 mg PO DAILY Qty: 90 3RF garlic 100 mg Tablet 100 mg PO DAILY ascorbic acid (vitamin C) [Vitamin C] 250 mg Tablet 250 mg PO DAILY gemfibrozil 600 mg Tablet 600 mg PO DAILY Turkish ginseng root extract 150 mg Capsule 150 mg PO DAILY aspirin 500 mg Tablet 500 mg PO BID PRN (Reason: Pain) Hold Instructions: Resume on 03/31/22. Rx Instructions: while awake ginkgo biloba 40 mg Tablet 40 mg PO BID Rx Instructions: give with meal/snack glucose 4 gram Tablet,Chewable 4 g PO Q15M PRN (Reason: Hypoglycemia) Rx Instructions: until symptoms of low blood sugar are controlled ginseng 250 mg Capsule 250 mg PO DAILY cholecalciferol (vitamin D3) 25 mcg (1,000 unit) Capsule 25 mcg PO DAILY metformin 1,000 mg Tablet Extended Release 24hr 500 mg PO DAILY insulin glargine [Lantus Solostar U-100 Insulin] 100 unit/mL (3 mL) Insulin Pen 10 unit SUBCUT DAILY omega-3 fatty acids 500 mg Capsule 500 mg PO BID Tylenol 325 mg Tablet 1,000 mg PO DAILY PRN (Reason: Pain) glipizide 2.5 mg Tablet Extended Release 24hr 2.5 mg PO DAILY hydrocodone-acetaminophen 5-325 mg tablet 1 tab PO Q6H PRN (Reason: pain) Qty: 14 0RF Cipro 500 mg tablet 500 mg PO Q12H Qty: 14 0RF Discharge Orders: Discharge ED (Routine); Ordered 02/25/24 Ordered By: Toño Ramey Referrals: Evelio Pisano DO [Primary Care Provider] - Patient Instructions: Fever - Adult, Urinary Tract Infection - Men Activity Restrictions/Additional Instructions: Your evaluation here showed you have a urinary tract infection. You were given your first dose of antibiotics here in the ER. A prescription has been called to your pharmacy. Please take these as directed. Please follow-up with your family practitioner in the next 7 days for further evaluation and treatment as needed. Coding Level of Care Code ED Basket Filler for Chg Fwd Documented by User: Toño Ramey DO 02/25/24 19:19 HPI - Male Genitourinary 2 General: Chief complaint: Urogenital-Male Stated complaint: body pain/ urinary issues Time Seen by Provider: 02/25/24 17:14 Related Data Home Medications Medication Instructions Recorded Confirmed Turkish ginseng root extract 150 mg 150 mg PO DAILY 03/08/21 06/27/22 capsule ascorbic acid (vitamin C) 250 mg 250 mg PO DAILY 03/08/21 06/27/22 tablet (Vitamin C) garlic 100 mg tablet 100 mg PO DAILY 03/08/21 06/27/22 gemfibrozil 600 mg tablet 600 mg PO DAILY 03/08/21 06/27/22 aspirin 500 mg tablet 500 mg PO BID PRN Pain 12/22/21 06/27/22 cholecalciferol (vitamin D3) 25 25 mcg PO DAILY 12/22/21 06/27/22 mcg (1,000 unit) capsule ginkgo biloba 40 mg tablet 40 mg PO BID 12/22/21 06/27/22 ginseng 250 mg capsule 250 mg PO DAILY 12/22/21 06/27/22 glucose 4 gram chewable tablet 4 g PO Q15M PRN Hypoglycemia 12/22/21 06/27/22 insulin glargine 100 unit/mL (3 10 unit SUBCUT DAILY 12/22/21 06/27/22 mL) subcutaneous pen (Lantus Solostar U-100 Insulin) metformin 1,000 mg tablet,extended 500 mg PO DAILY 12/22/21 06/27/22 release 24hr (osmotic) omega-3 fatty acids 500 mg capsule 500 mg PO BID 12/22/21 06/27/22 fiber as directed 01/20/22 06/27/22 capsicum (cayenne) 450 mg capsule 450 mg PO DAILY 03/06/22 06/27/22 cinnamon bark 500 mg capsule 500 mg PO DAILY 03/06/22 06/27/22 (Cinnamon) magnesium oxide 250 mg PO DAILY 03/06/22 06/27/22 saw palmetto 450 mg capsule 450 mg PO DAILY daily 03/06/22 06/27/22 acetaminophen 325 mg tablet 1,000 mg PO DAILY PRN Pain 03/29/22 06/27/22 (Tylenol) glipizide 2.5 mg tablet, extended 2.5 mg PO DAILY 03/29/22 06/27/22 release 24 hr Previous Rx's Medication Instructions Recorded tamsulosin 0.4 mg capsule 0.4 mg PO DAILY #90 caps 06/27/22 ciprofloxacin HCl 500 mg tablet 500 mg PO Q12H #14 tabs 10/19/22 (Cipro) hydrocodone 5 mg-acetaminophen 325 1 tab PO Q6H PRN pain #14 tabs 10/19/22 mg tablet ciprofloxacin HCl 500 mg tablet 500 mg PO Q12H #20 tabs 02/25/24 Allergies Allergy/AdvReac Type Severity Reaction Status Date / Time No Known Allergies Allergy Verified 02/25/24 16:25 PFSH ED 2 PFSH: Medical History Tubular adenoma of colon Diverticulosis UTI (urinary tract infection) Recurrent UTI Trauma Diabetes Diverticulitis of large intestine with complication Abdominal pain Diverticulitis Surgical History Hx of colonoscopy At [place] History of colostomy reversal History of colostomy Family History Father , at age 72 CAD (coronary artery disease) Mother , at age 93 Dementia Social History Smoking and tobacco/nicotine status: former use of tobacco/nicotine Alcohol intake: current Alcohol intake frequency: 0-2 Drinks per Day Household members: spouse Marital status: Current occupational status: retired Course 2 Vital Signs: Vital signs: Vital Signs Temperature 101.3 F H 02/25/24 16:21 Pulse Rate 82 02/25/24 19:33 Respiratory Rate 16 02/25/24 19:33 Blood Pressure 103/66 02/25/24 19:33 Pulse Oximetry 94 02/25/24 19:33 Oxygen Delivery Me thod Room Air 02/25/24 18:55 MDM - Male Medical Decision Making Care signed out to Dr. Ramey at change of shift. See final notes for diagnosis and disposition. Care transferred over to myself at shift change, lactic acid come back normal. Reviewed rest of the lab work with the patient. Patient said he is feeling much better and would like to go home and not stay here in the hospital. We will call in some antibiotics to [facility] in [place] and patient be discharged to follow-up with his PCP. Lab Data 02/25/24 17:40 02/25/24 17:40 Laboratory Results WBC 13.42 10^3/uL (3.29-11.43) H 02/25/24 17:40 RBC 4.47 10^6/uL (3.85-5.65) 02/25/24 17:40 Hgb 13.90 g/dL (11.27-16.99) 02/25/24 17:40 Hct 41.1 % (37-53) 02/25/24 17:40 MCV 91.9 fl (82-101) 02/25/24 17:40 MCH 31.1 pg (27-33) 02/25/24 17:40 MCHC 33.8 g/dL (30-55) 02/25/24 17:40 RDW 13.1 % (12.1-15.1) 02/25/24 17:40 Plt Count 181 10^3/cmm (157-399) 02/25/24 17:40 MPV 9.8 fL (7.4-10.4) 02/25/24 17:40 Neut % (Auto) 79.1 % 02/25/24 17:40 Lymph % (Auto) 12.0 % 02/25/24 17:40 C[place]ay % (Auto) 8.2 % 02/25/24 17:40 Eos % (Auto) 0.1 % 02/25/24 17:40 Baso % (Auto) 0.2 % 02/25/24 17:40 Neut # (Auto) 10.62 10^3/uL (1.8-7.7) H 02/25/24 17:40 Lymph # (Auto) 1.6 10^3/uL (0.8-4.8) 02/25/24 17:40 [place] # (Auto) 1.1 10^3/uL (0.2-0.9) H 02/25/24 17:40 Eos # (Auto) 0.0 10^3/uL (0.0-0.8) 02/25/24 17:40 Baso # (Auto) 0.0 10^3/uL (0.0-0.1) 02/25/24 17:40 Nucleated RBC % (auto) 0 % 02/25/24 17:40 Nucleated RBCs # 0.0 /100WBC 02/25/24 17:40 Sodium 133 mmol/L (136-145) L 02/25/24 17:40 Potassium 4.3 mmol/L (3.5-5.1) 02/25/24 17:40 Chloride 97 mmol/L (98-107) L 02/25/24 17:40 Carbon Dioxide 25 mmol/L (22-29) 02/25/24 17:40 Anion Gap 15.3 (5-19) 02/25/24 17:40 BUN 13 mg/dL (8-23) 02/25/24 17:40 Creatinine 0.8 mg/dL (0.7-1.2) 02/25/24 17:40 GFR Calculation 95.6 mL/min (90-130) 02/25/24 17:40 Glucose 153 mg/dL (65-115) H 02/25/24 17:40 POC Glucose 140 mg/dL (70-110) H 02/25/24 17:44 Calculated Osmolality 279 mOsm/kg (285-295) L 02/25/24 17:40 Lactic Acid 1.5 mmol/L (0.5-2.2) 02/25/24 17:40 Calcium 9.2 mg/dL (8.5-10.5) 02/25/24 17:40 Total Bilirubin 1.5 mg/dL (0.15-1.2) H 02/25/24 17:40 AST 45 U/L (0-40) H 02/25/24 17:40 ALT 46 U/L (0-41) H 02/25/24 17:40 Alkaline Phosphatase 118 U/L (40-130) 02/25/24 17:40 Total Protein 7.9 g/dL (6.6-8.7) 02/25/24 17:40 Albumin 4.4 g/dL (3.5-5.2) 02/25/24 17:40 Globulin 3.5 g/dL (1.3-4.6) 02/25/24 17:40 Urine Color Yellow (Yellow) 02/25/24 17:32 Urine Appearance Clear (CLEAR) 02/25/24 17:32 Urine pH 8.0 (5-7) A 02/25/24 17:32 Ur Specific [place] 1.016 (1.005-1.030) 02/25/24 17:32 Urine Protein Negative (Negative) 02/25/24 17:32 Urine Glucose (UA) Negative (Normal) 02/25/24 17:32 Urine Ketones Negative (Negative) 02/25/24 17:32 Urine Blood Non-haemolysed trace (Negative) 02/25/24 17:32 Urine Nitrate Positive (Negative) A 02/25/24 17:32 Urine Bilirubin Negative (Negative) 02/25/24 17:32 Urine Urobilinogen 1.0 mg/dL (Negative) 02/25/24 17:32 Ur Leukocyte Esterase 2+ (Negative) A 02/25/24 17:32 Urine RBC 0-4 /hpf (0-2) H 02/25/24 17:32 Urine WBC 25-40 /hpf (0-5) H 02/25/24 17:32 Amorphous Sediment Not Reportable 02/25/24 17:32 Urine Bacteria 3+ /hpf (NONE) H 02/25/24 17:32 All radiology interpretation(s) finalized by discharge Discharge Plan Discharge Patient Disposition: Home Clinical Impression: Urinary tract infection Qualifiers: Urinary tract infection type: acute cystitis Hematuria presence: without hematuria Qualified Code(s): N30.00 - Acute cystitis without hematuria Fever Qualifiers: Fever type: unspecified Qualified Code(s): R50.9 - Fever, unspecified Condition: Stable Prescriptions: New ciprofloxacin HCl 500 mg tablet 500 mg PO Q12H Qty: 20 0RF No Action fiber as directed capsicum (cayenne) 450 mg capsule 450 mg PO DAILY magnesium oxide 250 mg magnesium tablet 250 mg PO DAILY cinnamon bark [Cinnamon] 500 mg capsule 500 mg PO DAILY saw palmetto 450 mg capsule 450 mg PO DAILY Rx Instructions: give with food (meal/snack) tamsulosin 0.4 mg capsule 0.4 mg PO DAILY Qty: 90 3RF garlic 100 mg Tablet 100 mg PO DAILY ascorbic acid (vitamin C) [Vitamin C] 250 mg Tablet 250 mg PO DAILY gemfibrozil 600 mg Tablet 600 mg PO DAILY Turkish ginseng root extract 150 mg Capsule 150 mg PO DAILY aspirin 500 mg Tablet 500 mg PO BID PRN (Reason: Pain) Hold Instructions: Resume on 03/31/22. Rx Instructions: while awake ginkgo biloba 40 mg Tablet 40 mg PO BID Rx Instructions: give with meal/snack glucose 4 gram Tablet,Chewable 4 g PO Q15M PRN (Reason: Hypoglycemia) Rx Instructions: until symptoms of low blood sugar are controlled ginseng 250 mg Capsule 250 mg PO DAILY cholecalciferol (vitamin D3) 25 mcg (1,000 unit) Capsule 25 mcg PO DAILY metformin 1,000 mg Tablet Extended Release 24hr 500 mg PO DAILY insulin glargine [Lantus Solostar U-100 Insulin] 100 unit/mL (3 mL) Insulin Pen 10 unit SUBCUT DAILY omega-3 fatty acids 500 mg Capsule 500 mg PO BID Tylenol 325 mg Tablet 1,000 mg PO DAILY PRN (Reason: Pain) glipizide 2.5 mg Tablet Extended Release 24hr 2.5 mg PO DAILY hydrocodone-acetaminophen 5-325 mg tablet 1 tab PO Q6H PRN (Reason: pain) Qty: 14 0RF Cipro 500 mg tablet 500 mg PO Q12H Qty: 14 0RF Discharge Orders: Discharge ED (Routine); Ordered 02/25/24 Ordered By: Toño Ramey Referrals: Evelio Pisano DO [Primary Care Provider] - Patient Instructions: Fever - Adult, Urinary Tract Infection - Men Activity Restrictions/Additional Instructions: Your evaluation here showed you have a urinary tract infection. You were given your first dose of antibiotics here in the ER. A prescription has been called to your pharmacy. Please take these as directed. Please follow-up with your family practitioner in the next 7 days for further evaluation and treatment as needed. Coding Level of Care Code ED Basket Filler for Woo Wray
[2024-02-25] MEDS: ketorolac 30 mg/mL INJ IVP (17:46)
[2024-02-25] MEDS: sodium chloride 0.9% 1,000 ML 999 ML IV (17:46)
[2024-02-25 17:47] LABS: Basophils % 0.2 %; Eosinophils % 0.1 %; Hematocrit 41.1 % (37-53); Lymphocytes # 1.6 10^3/uL (0.8-4.8); Mean Corpuscular HGB Conc 33.8 g/dL (30-55); Mean Corpuscular Hemoglobin 31.1 pg (27-33); Mean Corpuscular Volume 91.9 fl (82-101); Mean Platelet Volume 9.8 fL (7.4-10.4); Monocytes # 1.1 10^3/uL (0.2-0.9); Monocytes % 8.2 %; Neutrophils # 10.62 10^3/uL (1.8-7.7); Neutrophils % 79.1 %; Nucleated Red Blood Cells % 0 %; Platelet Count 181 10^3/cmm (157-399); Red Blood Count 4.47 10^6/uL (3.85-5.65); Red Cell Distribution Width 13.1 % (12.1-15.1); White Blood Count 13.42 10^3/uL (3.29-11.43)
--- NOTE | 2024-02-25 17:53 | PC.NURSE ---
Glucose via fingerstick 140
[2024-02-25 17:55] VITALS: BP 114/60; PULSE 77; O2SAT 91
[2024-02-25 17:58] LABS: Glucose Point of Care 140 mg/dL (70-110)
[2024-02-25 17:59] LABS: Charge for UA Resulting for Rev
[2024-02-25 18:03] LABS: Lactic Sepsis W/Reflex 1.5 mmol/L (0.5-2.2)
[2024-02-25 18:03] LABS: Bilirubin Urine Negative (Negative); Blood Urine Non-haemolysed trace (Negative); Glucose Urine UA Negative (Normal); Ketones Urine Negative (Negative); Leukocyte Esterase Urine 2+ (Negative); Nitrate Urine Positive (Negative); Protein Urine Negative (Negative); Specific Gravity, Urine 1.016 (1.005-1.030); Urine Appearance Clear (CLEAR); Urine Color Yellow (Yellow)
[2024-02-25 18:04] LABS: Alanine Aminotransferase 46 U/L (0-41); Albumin Level 4.4 g/dL (3.5-5.2); Alkaline Phosphatase 118 U/L (40-130); Anion Gap 15.3 (5-19); Aspartate Amino Transferase 45 U/L (0-40); Blood Urea Nitrogen 13 mg/dL (8-23); Calcium 9.2 mg/dL (8.5-10.5); Carbon Dioxide 25 mmol/L (22-29); Chloride 97 mmol/L (98-107); Creatinine Clr Calc Pharmacy 87.8874; Globulin 3.5 g/dL (1.3-4.6); Glomerular Filtration Rate 95.6 mL/min (90-130); Glucose 153 mg/dL (65-115); Osmolality Calculated 279 mOsm/kg (285-295); Potassium 4.3 mmol/L (3.5-5.1); Sodium 133 mmol/L (136-145); Total Bilirubin 1.5 mg/dL (0.15-1.2); Total Protein 7.9 g/dL (6.6-8.7)
[2024-02-25 18:17] LABS: UA Manual Slide Review YES
[2024-02-25 18:18] LABS: Add Urine Culture? Yes; Bacteria Urine 3+ /hpf; RBC Urine 0-4 /hpf (0-2); WBC Urine 25-40 /hpf (0-5)
--- NOTE | 2024-02-25 18:26 | PC.NURSE ---
Santosh orderd at 1745 delayed d/t needing blood cultures drawn
[2024-02-25] MEDS: cefTRIAXone 1,000 mg SDV 1000 MG IVP (18:54)
[2024-02-25 18:55] VITALS: BP 111/66; PULSE 86; RESP 16; O2SAT 94
[2024-02-25 19:33] VITALS: BP 103/66; PULSE 82; RESP 16; O2SAT 94
== END 2024-02-25 19:34 | disposition home or self-care (01) ==
PROVIDERS: Emergency Provider Family Medicine; PCP Emergency Medicine Emergency Medical Services
DX: N30.00 Acute cystitis without hematuria (principal); R50.9 Fever, unspecified; Z79.4 Long term (current) use of insulin; Z79.84 Long term (current) use of oral hypoglycemic drugs; Z87.891 Personal history of nicotine dependence; E11.9 Type 2 diabetes mellitus without complications; Z87.440 Personal history of urinary (tract) infections
CPT/HCPCS: 36415; 36416; 51798; 80053; 81003; 81015; 82962; 83605; 85025; 87040; 87077; 87086; 87186; 96361; 96374; 96375; 99284; J0696; J1885; J7030

== ENCOUNTER 2025-06-02 07:14 | Outpatient (CLI) | payer OTHER, SELFPAY ==
--- NOTE | 2025-06-02 07:24 | CT_ITS ---
WS: [id number] CT HEAD NONCONTRAST HISTORY: BRIEF SLURRED SPEECH VISUAL DISTURBANCE TECHNIQUE: Contiguous axial imaging performed through the brain. Bone and soft tissue windows. Sagittal and coronal reformats reviewed. All CT scans at [facility] use at least one of these dose optimization techniques: automated exposure control; mA and/or kV adjustment per patient size (includes targeted exams where dose is matched to clinical indication); or iterative reconstruction. DLP: 1202.58 mGy.cm COMPARISON: None available. No acute intracranial hemorrhage, midline shift or mass effect. Mild bifrontal lobe atrophy. Mild small vessel changes. No large territory infarct. No edema or midline shift. Ventricles: Normal size with no hydrocephalus. Fullness in the region of the carotid cavernous sinuses secondary to ectatic carotid arteries. Ectasia of the distal vertebral and also the basilar artery. Scattered calcified plaque. Paranasal sinuses: Mild mucoperiosteal thickening in the maxillary, ethmoid and sphenoid sinuses. No air-fluid levels. Mastoid air cells: Well pneumatized. Calvarium and scalp: Skull is intact with no soft tissue edema or swelling. CT/CT head wo con* [id number] IMPRESSION: 1. No acute intracranial hemorrhage or edema. 2. Mild cerebral atrophy and mild small vessel disease. 3. Dolichoectasia vertebrobasilar arteries. 4. 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 Ca rotid and cerebral arteries can be further evaluated by CT angiogram.
== END 2025-06-02 07:15 | disposition home or self-care (01) ==
LOC: RAD 07:17
PROVIDERS: PCP Emergency Medicine Emergency Medical Services; Visit Provider Family Medicine Geriatric Medicine
DX: H53.9 Unspecified visual disturbance (principal); R47.81 Slurred speech; G31.9 Degenerative disease of nervous system, unspecified; G45.0 Vertebro-basilar artery syndrome; I77.89 Other specified disorders of arteries and arterioles
CPT/HCPCS: 70450